=== PATIENT | male | born 1945 | race Caucasian/White ===

== ENCOUNTER 2018-03-28 11:38 | Emergency (ER) | payer MEDICARE ==
[2018-03-28] MEDS ORDERED: methylPREDNISolone Sod Succ/PF 125 MG/2 ML VIAL ONE (13:35)
== END 2018-03-28 13:55 | disposition home or self-care (01) ==
LOC: ERS 11:38
DX: T78.40XA Allergy, unspecified, initial encounter (principal); E11.9 Type 2 diabetes mellitus without complications; K21.9 Gastro-esophageal reflux disease without esophagitis; I10 Essential (primary) hypertension; M10.9 Gout, unspecified; Z79.899 Other long term (current) drug therapy; Z79.82 Long term (current) use of aspirin; Z79.4 Long term (current) use of insulin
CPT/HCPCS: 96372; J2930

== ENCOUNTER 2018-04-07 14:29 | Observation (INO) | payer MEDICARE ==
[2018-04-07 15:52] LABS: #Basophils 0.1 thou/uL (0.0-0.2); #Eosinphils 0.1 thou/uL (0.0-0.7); #Lymphocytes 1.8 thou/uL (1.20-3.40); #Monocytes 0.5 thou/uL (0.11-0.59); #Neutrophils 3.4 thou/uL (1.40-6.50); %Basophils 1.1 % (0.0-1.0); %Eosinophils 1.9 % (0.0-10.0); %Lymphocytes 30.5 % (21.0-51.0); %Neutrophils 58.6 % (42.0-75.0); Hemoglobin 12.7 g/dL (14.0-18.0); Mean Corpuscular HGB CONC 33.4 g/dL (32.0-36.0); Mean Corpuscular Volume 86.8 fL (78.0-98.0); Mean Platelet Volume 6.6 fL (7.4-10.4); Platelet Count 188 thou/uL (130-400); RBC Distribution Width 13.4 % (11.5-14.5); White Blood Cell (WBC) Count 5.9 thou/uL (4.8-10.8)
--- NOTE | 2018-04-07 15:59 | RAD ---
CHEST ONE VIEW: HISTORY: Pain. COMPARISON: 08/28/2016 FINDINGS: Normal cardiac silhouette. Pulmonary vessels and hilum are normal. No consolidation or mass. No pn eumothorax or osseous abnormalities. IMPRESSION: No acute cardiopulmonary process. POS: [facility]
[2018-04-07 16:11] LABS: ALT (SGPT) 41 U/L (8-55); AST (SGOT) 17 U/L (5-34); Albumin 3.9 g/dL (3.4-4.8); Alkaline Phosphatase 63 U/L (40-150); Anion Gap 14 mmol/L (10-20); BUN (Urea Nitrogen) 26 mg/dL (8.4-25.7); Bilirubin, Total 0.3 mg/dL (0.2-1.2); CK (CPK) 39 U/L (30-200); Calc. Creatinine Clearance 0 mL/min (70-130); Calcium 9.6 mg/dL (7.8-10.44); Carbon Dioxide 23 mmol/L (23-31); Chloride 104 mmol/L (98-107); Estimated GFR-MDRD 32; Globulin 3.1 g/dL (2.4-3.5); Glucose 233 mg/dL (83-110); Lipase 135 U/L (8-78); Potassium 5.2 mmol/L (3.5-5.1); Sodium 136 mmol/L (136-145)
[2018-04-07 16:15] LABS: CKMB 1.2 ng/mL (0-6.6); Troponin I Less than 0.010 ng/mL (< 0.028)
[2018-04-07 19:00] LABS: Troponin I Less than 0.010 ng/mL (< 0.028)
[2018-04-07] MEDS ORDERED: Dextrose 5% in Water 1,000 ML IV PRN (19:41)
[2018-04-07] MEDS ORDERED: Nitroglycerin 0.4 MG TAB (25 Tab Bottle) PO PRN (19:41)
[2018-04-07] MEDS ORDERED: Senokot 8.6 MG TAB PO PRN (19:41)
[2018-04-07] MEDS ORDERED: Ondansetron HCl/PF 4 MG/2 ML Vial IVP PRN (19:41)
[2018-04-07] MEDS ORDERED: Ondansetron ODT 4 MG TAB PO PRN (19:41)
[2018-04-07] MEDS ORDERED: Insulin Regular 300 UNITS/3 ML VIAL SC PRN ×2 (19:41)
[2018-04-07] MEDS ORDERED: Acetaminophen 325 MG TAB PO PRN (19:41)
[2018-04-07] MEDS ORDERED: Calcium Carbonate 500 MG ChewTAB PO PRN (19:41)
[2018-04-07] MEDS ORDERED: Dextrose 50% Abboject 50 ML SYRINGE SLOW IVP PRN (19:41)
[2018-04-07] MEDS ORDERED: Sodium Chloride 0.9% 1,000 ML IV SCH (19:45)
[2018-04-07] MEDS ORDERED: hydrALAZINE 20 MG/ML VIAL SLOW IVP PRN (19:46)
[2018-04-07] MEDS ORDERED: Milk Of Magnesia 30 ML UDCUP PO PRN (19:46)
[2018-04-07] MEDS ORDERED: Labetalol HCl 100 MG/20 ML VIAL SLOW IVP PRN (19:46)
[2018-04-07] MEDS ORDERED: Hydrocerin (Eucerin) Cream 120 gm Jar TOP PRN (19:46)
[2018-04-07] MEDS ORDERED: Polyethylene Glycol 3350 17 GM Packet PO PRN (19:46)
[2018-04-07] MEDS ORDERED: cloNIDine 0.1 MG TAB PO PRN (19:46)
--- NOTE | 2018-04-07 19:54 | HP ---
DATE OF ADMISSION: 04/07/2018 PRIMARY CARE PHYSICIAN: Wil Jang M.D. PRIMARY DRAWER IN STITCH BONDING MACHINE: Dr. Smith Vidales. CHIEF COMPLAINT: Chest discomfort. HISTORY OF PRESENT ILLNESS: The patient is a 73-year-old male with coronary artery disease, hyperten louann, diabetes, and GERD, who presented to the emergency room with chest discomfort that has been linsey oing for last 1-2 weeks. It is associated with shortness of breath, especially when picking somethin g heavy. The chest discomfort is pressure-like, moderate in intensity without any radiation. He den ies any associated diaphoresis, nausea, vomiting or palpitations. No syncope reported. He denies re cent immobilization, travel, fever, chills or cough. He has a history of sleep apnea and is complian t with CPAP. The patient had a cardiac catheterization in 11/2016 that showed 30% lesion in the prox imal LAD, 30% lesion in the mid LAD, 10% lesion in the first obtuse marginal, 50% stenosis in the mid RCA, and 20% stenosis in the right PDA. Left main was normal. PAST MEDICAL HISTORY: 1. Coronary artery disease as described above. 2. Hypertension. 3. Obstructive sleep apnea, on CPAP. 4. Former smoker. 5. Hyperlipidemia. 6. Diastolic dysfunction. 7. Patent foramen ovale with atrial septal aneurysm. 8. Diabetes mellitus type 2. 9. Gout. PAST SURGICAL HISTORY: 1. Cardiac catheterization. 2. Right elbow surgery. ALLERGIES: Patient denies any drug allergies. CURRENT HOME MEDICATIONS: Patient currently takes aspirin, Levemir, metoprolol succinate 150 mg jeremiah y, amlodipine 5 mg daily, allopurinol 300 mg daily, Lipitor 10 mg daily, insulin sliding scale, lisin opril. Exact dosages to be confirmed. SOCIAL HISTORY: The patient currently lives at home with his family. He is a former smoker. He is FULL CODE, makes his own decisions with the help of his family. FAMILY HISTORY: Negative for premature coronary artery disease. REVIEW OF SYSTEMS: The following complete review of systems was negative, unless otherwise mentioned in the HPI or below: Constitutional: Weight loss or gain, ability to conduct usual activities. Skin: Rash, itching. Eyes: Double vision, pain. ENT/Mouth: Nose bleeding, neck stiffness, pain, tenderness. Cardiovascular: Palpitations, dyspnea on exertion, orthopnea. Respiratory: Shortness of breath, wheezing, cough, hemoptysis, fever or night sweats. Gastrointestinal: Poor appetite, abdominal pain, heartburn, nausea, vomiting, constipation, or diarrhea. Genitourinary: Urgency, frequency, dysuria, nocturia. Musculoskeletal: Pain, swelling. Neurologic/Psychiatric: Anxiety, depression. Allergy/Immunologic: Skin rash, bleeding tendency. PHYSICAL EXAMINATION: VITAL SIGNS: Temperature 97.7, respirations 16, pulse rate of 69, blood pressure of 131/69 with O2 s aturation 100% on room air. GENERAL: A 73-year-old male in no apparent distress. Denies any chest discomfort at this time. HEENT: Head atraumatic, normocephalic. Sclerae are anicteric. Moist mucous membrane, no oral lesio n. NECK: Supple, no JVD appreciated. No carotid bruit. LUNGS: Clear to auscultation bilaterally. No wheezing, rales or rhonchi. HEART: S1, S2 present. Regular rate and rhythm. No murmur, rubs, or gallops appreciated. ABDOMEN: Soft, nontender, bowel sounds present, no rebound or guarding. EXTREMITIES: No edema or calf tenderness. NEUROLOGIC: Grossly nonfocal, moves all four extremities. PSYCHIATRY: Alert, awake, oriented x3. SKIN: Warm and dry. LYMPH NODES: No palpable lymph nodes in the neck. PERIPHERAL VASCULAR: Radial pulses palpable bilaterally. MUSCULOSKELETAL: No joint swelling or tenderness. LABORATORY FINDINGS: CBC showed WBC 5.9 with hemoglobin 12.7, hematocrit 38.2, platelet of 188. Margarita bj showed sodium 136, potassium 5.2, chloride 104, bicarbonate 23, BUN 26, creatinine 2.06. His baseline creatinine is around 1.5. Troponin x2 have been negative. BNP is 20. LFTs in normal range . Lipase was 135. EKG by my review showed sinus rhythm with left axis deviation with poor R-wave pr ogression. Chest x-ray by my review was negative for infiltrate. IMPRESSION: 1. Chest discomfort in a 73-year-old male with a history of coronary artery disease associated with shortness of breath. His symptoms are probably consistent with angina. The patient will be monitore d overnight. We will get serial troponins. We will consult Cardiology in a.m. Continue aspirin and nitroglycerin as needed. 2. Diabetes mellitus type 2. We will continue Levemir with sliding scale. The patient will be n.p. o. past midnight. 3. Acute kidney injury on chronic kidney disease stage 3. We will hold lisinopril for now. We will start him on gentle IV hydration. Repeat labs in a.m. 4. Hyperkalemia, probably secondary to renal insufficiency as well as use of FRANKY inhibitor. We will recheck labs in a.m. Lisinopril will be held. 5. Hypertension. We will resume all of his home medications once dosages are verified. 6. History of gout. We will continue allopurinol. 7. Hyperlipidemia. We will continue statins. 8. Obstructive sleep apnea. We will continue CPAP. Plan of care was discussed with the patient in detail. He stated understanding.
[2018-04-07 20:13] VITALS: BMI 37.5
[2018-04-07] MEDS ORDERED: Atorvastatin Calcium 10 MG TAB PO SCH (21:00)
[2018-04-07] MEDS ORDERED: Famotidine 20 MG TAB PO SCH (21:00)
[2018-04-07] MEDS: Insulin Glargine 15 UNITS in Pre-Filled Syringe 1 EACH SC SCH (21:17)
[2018-04-07 23:00] LABS: Troponin I Less than 0.010 ng/mL (< 0.028)
[2018-04-08 04:43] LABS: Anion Gap 14 mmol/L (10-20); BUN (Urea Nitrogen) 24 mg/dL (8.4-25.7); Calc. Creatinine Clearance 70 mL/min (70-130); Calcium 9.7 mg/dL (7.8-10.44); Carbon Dioxide 22 mmol/L (23-31); Chloride 105 mmol/L (98-107); Estimated GFR-MDRD 43; Glucose 255 mg/dL (83-110); Magnesium 1.8 mg/dL (1.6-2.6); Potassium 4.6 mmol/L (3.5-5.1); Sodium 136 mmol/L (136-145)
[2018-04-08] MEDS ORDERED: Aspirin 325 MG TAB PO SCH (08:00)
[2018-04-08 08:20] VITALS: BP 123/64; TEMP 97.9
[2018-04-08] MEDS ORDERED: Amlodipine 5 MG TAB PO SCH (09:00)
[2018-04-08] MEDS: Insulin Glargine 15 UNITS in Pre-Filled Syringe 1 EACH SC SCH (09:11)
--- NOTE | 2018-04-09 10:15 | DIS ---
DATE OF DISCHARGE: 04/08/2018 DISCHARGE DISPOSITION: Home. FOLLOWUP: 1. Follow up at Dr. Vidales's clinic today for a stress test. 2. Follow up with Dr. Jang in 1 week. DISCHARGE MEDICATIONS: Same as admission medications. No changes were made. Patient was seen and examined on the day of discharge, denies any chest discomfort. BRIEF HOSPITAL COURSE: The patient is a 73-year-old male with coronary artery disease, hypertension, diabetes and GERD who presented to the emergency room with exertional shortness of breath with chest discomfort. Please refer to the history and physical for further details. The patient was admitted to the hospital with a diagnosis of chest discomfort, rule out acute coronar y syndrome. Serial troponins remain negative. I discussed the case with Dr. Vidales who recommende d a stress test. He will follow up with Dr. Vidales's office today for a stress test. He is chest pain free. His troponins remain negative. Patient was found to have mild acute kidney injury with creatinine 2.06 that improved to 1.58 with IV hydration. Repeat base met after 1 week is recommended. Primary care physician advised to follow. FINAL DIAGNOSES: 1. Chest discomfort, acute coronary syndrome ruled out. 2. Diabetes mellitus type 2. 3. Acute kidney injury on chronic kidney disease stage 3, improved. 4. Mild hyperkalemia with potassium of 5.2. Lisinopril was held. 5. Hypertension. 6. History of gout. 7. Hyperlipidemia. 8. Obstructive sleep apnea on continuous positive airway pressure. 9. BMP after 2-3 days is recommended. Primary care physician is advised to follow. 10. Obesity with body mass index 37.6.
--- NOTE | 2018-04-16 18:23 | EKG ---
Test Reason : CP Blood Pressure : / mmHG Vent. Rate : 071 BPM Atrial Rate : 071 BPM P-R Int : 152 ms QRS Dur : 076 ms QT Int : 392 ms P-R-T Axes : 245 -20 019 degrees QTc Int : 425 ms Unusual P axis, possible ectopic atrial rhythm Minimal voltage criteria for LVH, may be normal variant Inferior infarct , age undetermined Cannot rule out Anterior infarct , age undetermined Abnormal ECG Confirmed by LORI BARNES, NEGIN Ochoa ([id number]), society editor JAY CATES ([id number]) on 04/16/2018 6:22:32 PM Referred By: Confirmed By:NEGIN SANDOVAL MD
== END 2018-04-08 10:17 | disposition home or self-care (01) ==
LOC: ERS 14:29 → ERHOLD 17:27 → 2SW 20:07
PROVIDERS: ADMIT Internal Medicine; ATTEND Internal Medicine
DX: R07.89 Other chest pain (principal); I25.10 Atherosclerotic heart disease of native coronary artery without angina pectoris; I12.9 Hypertensive chronic kidney disease with stage 1 through stage 4 chronic kidney disease, or unspecified chronic kidney disease; E11.22 Type 2 diabetes mellitus with diabetic chronic kidney disease; N18.3 Chronic kidney disease, stage 3 (moderate); N17.9 Acute kidney failure, unspecified; G47.33 Obstructive sleep apnea (adult) (pediatric); E78.5 Hyperlipidemia, unspecified; M10.9 Gout, unspecified; Q21.1 Atrial septal defect; I25.3 Aneurysm of heart; E87.5 Hyperkalemia; K21.9 Gastro-esophageal reflux disease without esophagitis; E66.9 Obesity, unspecified; Z68.37 Body mass index [BMI] 37.0-37.9, adult; Z87.891 Personal history of nicotine dependence; Z79.4 Long term (current) use of insulin; Z79.82 Long term (current) use of aspirin; Z79.899 Other long term (current) drug therapy; Z99.89 Dependence on other enabling machines and devices
CPT/HCPCS: 71045; 80048; 80053; 82550; 82553; 82962; 83690; 83735; 83880; 84484 ×2; 85025; 93005; 99285; G0378 ×2; 36415; 36416

== ENCOUNTER 2018-06-05 08:56 | Inpatient (IN) | payer MEDICARE ==
[2018-06-05 09:17] LABS: #Eosinphils 0.2 thou/uL (0.0-0.7); #Lymphocytes 1.4 thou/uL (1.20-3.40); #Monocytes 0.4 thou/uL (0.11-0.59); #Neutrophils 4.1 thou/uL (1.40-6.50); %Basophils 0.2 % (0.0-1.0); %Eosinophils 2.8 % (0.0-10.0); %Lymphocytes 22.7 % (21.0-51.0); %Monocytes 6.2 % (0.0-10.0); %Neutrophils 68.1 % (42.0-75.0); Hemoglobin 12.9 g/dL (14.0-18.0); Mean Corpuscular Hemoglobin 27.4 pg (27.0-31.0); Mean Corpuscular Volume 85.7 fL (78.0-98.0); Mean Platelet Volume 7.3 fL (7.4-10.4); Platelet Count 145 thou/uL (130-400); RBC Distribution Width 13.7 % (11.5-14.5); Red Blood Cell (RBC) Count 4.72 mill/uL (4.70-6.10); White Blood Cell (WBC) Count 6.1 thou/uL (4.8-10.8)
[2018-06-05 09:39] LABS: ALT (SGPT) 13 U/L (8-55); AST (SGOT) 9 U/L (5-34); Albumin 4.5 g/dL (3.4-4.8); Alkaline Phosphatase 71 U/L (40-150); Anion Gap 13 mmol/L (10-20); BUN (Urea Nitrogen) 27 mg/dL (8.4-25.7); Bilirubin, Total 0.3 mg/dL (0.2-1.2); CK (CPK) 70 U/L (30-200); Calc. Creatinine Clearance 0 mL/min (70-130); Calcium 9.3 mg/dL (7.8-10.44); Carbon Dioxide 25 mmol/L (23-31); Chloride 103 mmol/L (98-107); Estimated GFR-MDRD 46; Globulin 2.7 g/dL (2.4-3.5); Glucose 302 mg/dL (83-110); Potassium 5.1 mmol/L (3.5-5.1); Protein, Total 7.2 g/dL (5.8-8.1); Sodium 136 mmol/L (136-145)
[2018-06-05 09:43] LABS: CKMB 1.5 ng/mL (0-6.6); Troponin I Less than 0.010 ng/mL (< 0.028)
[2018-06-05] MEDS ORDERED: Nitroglycerin 0.4 MG TAB (25 Tab Bottle) PO PRN (09:56)
[2018-06-05] MEDS ORDERED: Dextrose 50% Abboject 50 ML SYRINGE SLOW IVP PRN (09:56)
[2018-06-05] MEDS ORDERED: Ondansetron ODT 4 MG TAB PO PRN (09:56)
[2018-06-05] MEDS ORDERED: Ondansetron PF 4 MG/2 ML Vial IVP PRN (09:56)
[2018-06-05] MEDS ORDERED: Acetaminophen 325 MG TAB PO PRN (09:56)
[2018-06-05] MEDS ORDERED: Calcium Carbonate 500 MG ChewTAB PO PRN (09:56)
[2018-06-05] MEDS ORDERED: Insulin Regular 300 UNITS/3 ML VIAL SC PRN ×2 (09:56)
[2018-06-05] MEDS ORDERED: Dextrose 5% in Water 1,000 ML IV PRN (09:56)
[2018-06-05] MEDS ORDERED: hydrALAZINE 20 MG/ML VIAL SLOW IVP PRN (10:01)
[2018-06-05] MEDS ORDERED: Labetalol HCl 100 MG/20 ML VIAL SLOW IVP PRN (10:01)
[2018-06-05] MEDS ORDERED: Heparin 5,000 UNITS/ML VIAL SC SCH (10:15)
[2018-06-05] MEDS ORDERED: Aspirin 325 MG TAB PO SCH (10:15)
[2018-06-05] MEDS ORDERED: Famotidine 20 MG TAB PO SCH (10:15)
--- NOTE | 2018-06-05 10:38 | CT ---
CT BRAIN WITHOUT CONTRAST: Date: 06/05/18 HISTORY: Stroke alert. Left eyelid droop and deficits. Blurry vision. COMPARISON: None. FINDINGS: No acute hemorrhage or infarct. No midline shift or mass effect. Ventricular size and extra-axial CSF spaces are normal. Calvarium is intact. Paranasal sinuses and mastoids are clear. IMPRESSION: 1. No acute intracranial abnormality. 2. 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 Attempted to make contact with the ER physician at the [phone] number at [phone] hours, although no one ans wered. POS: [facility]
--- NOTE | 2018-06-05 10:42 | CT ---
CT ANGIOGRAM HEAD WITH CONTRAST CT ANGIOGRAM NECK WITH CONTRAST: Date: 06/05/18 HISTORY: Stroke protocol. COMPARISON: None. TECHNIQUE: CT angiogram of the head and neck performed after the intravenous administration of contrast. 3D rend ering was provided. Exam limited as this is a delayed phase. There is more contrast within the venous system than there i s the arterial system. There were also only 60 mL of contrast administered intravenously. FINDINGS: Lung apices are clear. Thyroid is unremarkable. The vertebral arteries are codominant. Using NASCET c riteria, no hemodynamically significant stenosis of the carotid arteries. Moderate atherosclerotic pl aque both carotid bulbs. [place] of [place] patent. IMPRESSION: 1. Patent [place] of [place]. No thrombosis, aneurysm formation, or significant stenosis given the marino itations as described. 2. Using NASCET criteria, no hemodynamically significant stenosis internal carotid arteries. Attempted to contact the ordering provider at [phone] hours, but nobody answered. POS: [facility]
[2018-06-05 13:21] VITALS: BMI 38.2
[2018-06-05] MEDS: Sodium Chloride 0.9% 1,000 ML IV SCH (13:52)
--- NOTE | 2018-06-05 14:52 | CON ---
DATE OF CONSULTATION: 06/05/2018. CONSULTING PHYSICIAN: Hospitalist service. IMPRESSION: 1. Probable posterior brainstem infarct resulting in double vision and mild left lower extremity wea kness. 2. Diabetes. 3. Hypertension. 4. Aspirin failure. PLAN: 1. Add Plavix. 2. Continue aspirin and statin. 3. MRI of the brain. 4. Echocardiogram. HISTORY OF PRESENT ILLNESS: Mr. Calloway is a 73-year-old man with above noted medical problems. He mazariegos s been followed by Dr. Vidales and reportedly he has had some previous evidence of silent ischemia. He awoke last evening and noted that his vision was distorted. As he started to get up and move kerry und, he noticed that the left leg was weak. There was some very mild headache associated with it. T here was no nausea or vomiting, trouble swallowing, trouble speaking or incoordination of the hands a s far as he could tell. He came in and had a CTA and CT of the brain done last evening. There was n o extracranial or intracranial vessel stenosis noted. No evidence of hemorrhage is present. His vit al signs have been in normal range and he is afebrile. He has no past history of similar complaints. PAST MEDICAL HISTORY: As listed above. ALLERGIES: None. SOCIAL HISTORY: No tobacco or alcohol abuse. FAMILY HISTORY: Noncontributory. REVIEW OF SYSTEMS: No complaints of chest pain, shortness of breath, loss of hearing, vertigo, later alized numbness. PHYSICAL EXAMINATION: GENERAL: He is a overweight elderly man, in no acute distress. VITAL SIGNS: Blood pressure 157/72, pulse 64, respirations 20, temperature 97.9. HEENT: Pupils were equal. Conjunctivae was clear. Oropharynx is clear. NECK: Supple, no lymphadenopathy noted. EXTREMITIES: No cyanosis. NEUROLOGIC: He was alert and cooperative. His speech is fluent and clear. His cranial nerve exam w as notable that on the right, his eye had limited both lateral and medial deviation and on the left, there was restricted up and down gaze. He tended to drift into an exotropic position in mid gaze. T here was slight ptosis present on the left. The remainder of the cranial nerve exam was intact. Mot or exam showed good strength bilaterally in the upper extremities. There was mild subjective weaknes s in the left leg. Plantar responses were downgoing. Sensation was intact to light touch. Gait was not tested. LABORATORY STUDIES: BUN 27, creatinine 1.5, glucose 302, unremarkable CBC. SUMMARY: A 73-year-old man with acute double vision and left leg weakness. His exam suggested inter nuclear ophthalmoplegia. His initial workup has been unremarkable. I suspect that he has had a smal l vessel stroke in the brainstem. We could proceed with further diagnostics and advance his antiplat elet therapy with Plavix.
[2018-06-05] MEDS ORDERED: Clopidogrel Bisulfate 75 MG TAB PO SCH (16:45)
[2018-06-05] MEDS ORDERED: ISOVUE-370 76%-LOCM 1 ML ONE (16:53)
--- NOTE | 2018-06-05 16:54 | HP ---
DATE OF ADMISSION: 06/05/2018 PRIMARY CARE PHYSICIAN: Dr. Jang. PRIMARY VENDING ENTERPRISES SUPERVISOR: Dr. Smith Vidales. CHIEF COMPLAINT: Stroke-like symptoms. HISTORY OF PRESENT ILLNESS: Patient is a 73-year-old male with coronary artery disease, hypertension , obstructive sleep apnea on CPAP, patent foramen ovale with atrial septal aneurysm and diabetes juanita itus type 2, presented to the emergency room with the above symptoms. The patient felt normal when he went to sleep last night. Around 7:30 a.m. when he woke up, he notic ed that his left side was weak. He also had difficulty with vision. There was some burning sensatio n behind his left eye along with numbness to the tip of his tongue. His left lower extremity was wea k as well. He had difficulty walking and had double vision. For this reason, he presented to the em ergency room. He denies any headache, chest pain, palpitations, seizure or facial droop. No slurrin g of speech reported. In the emergency room, initial vital signs showed temperature 97.7, respirations 16, pulse rate of 67 , blood pressure of 172/95 with O2 saturation 97% on room air. He received aspirin in the emergency room. PAST MEDICAL HISTORY: 1. Obstructive sleep apnea on CPAP. 2. Diabetes mellitus type 2. 3. Coronary artery disease. 4. Chronic kidney disease stage 3. 5. Hypertension. 6. Gout. 7. Hyperlipidemia. 8. Obesity with BMI 38.2. 9. History of patent foramen ovale with atrial septal aneurysm. PAST SURGICAL HISTORY: 1. Cardiac catheterization. 2. Right elbow surgery. ALLERGIES: No known drug allergies. CURRENT HOME MEDICATIONS: Allopurinol 300 mg daily, amlodipine 5 mg daily, aspirin 81 mg daily, Lipi tor 10 mg at bedtime, Benadryl as needed, Flovent Diskus 50 mcg daily, hydralazine 50 mg 3 times jeremiah y, NovoLog 25 units 3 times daily, sliding scale, Levemir 25 units b.i.d., lisinopril 20 mg daily, me tformin 1000 mg b.i.d., Toprol-XL 150 mg daily, ranitidine 300 mg at bedtime. SOCIAL HISTORY: Patient currently lives at home with his family. He is a former smoker. Denies any current use of smoking, alcohol or drug use. He makes his own decision with the help of his family. He is FULL CODE. FAMILY HISTORY: Negative for premature coronary artery disease or CVA. REVIEW OF SYSTEMS: The following complete review of systems was negative, unless otherwise mentioned in the HPI or below: Constitutional: Weight loss or gain, ability to conduct usual activities. Skin: Rash, itching. Eyes: Double vision, pain. ENT/Mouth: Nose bleeding, neck stiffness, pain, tenderness. Cardiovascular: Palpitations, dyspnea on exertion, orthopnea. Respiratory: Shortness of breath, wheezing, cough, hemoptysis, fever or night sweats. Gastrointestinal: Poor appetite, abdominal pain, heartburn, nausea, vomiting, constipation, or diarr hea. Genitourinary: Urgency, frequency, dysuria, nocturia. Musculoskeletal: Pain, swelling. Neurologic/Psychiatric: Anxiety, depression. Allergy/Immunologic: Skin rash, bleeding tendency. PHYSICAL EXAMINATION: VITAL SIGNS: As discussed above. GENERAL: A 73-year-old male in no apparent distress. HEENT: Head is atraumatic, normocephalic. Sclerae are anicteric. Moist mucous membrane, no oral le louann. Pupils were equally reacting to light. There is left gaze preference in the left eye. The pa tient has covered his left eye at this time. NECK: Supple, no JVD, no carotid bruit. LUNGS: Clear to auscultation bilaterally, no wheezing, rales or rhonchi. HEART: S1, S2 present. Regular rate and rhythm. No murmur, rubs, or gallops appreciated. ABDOMEN: Soft, nontender, bowel sounds present. EXTREMITIES: No edema or calf tenderness. NEUROLOGIC: Cranial nerves II-XII were normal on examination except for inability of the right eye t o pass the midline when looking towards left. Power was 5/5 in right upper and right lower extremity . It was 4/5 in left lower extremity. Left upper extremity appears to have normal power. Sensation to touch was normal bilaterally. SKIN: Warm and dry. LYMPH NODES: No palpable lymph nodes in the neck. PERIPHERAL VASCULAR: Radial pulses palpable bilaterally. MUSCULOSKELETAL: No joint swelling or tenderness. IMAGING DATA AND LABORATORY DATA: 1. EKG by my review showed sinus rhythm with left axis deviation, no significant ST-T wave changes n oted. Creatinine 1.5 with BUN 27, sodium 136, potassium 5.1. 2. WBC was 6.1 with hemoglobin 12.9. 3. CT angiogram of the head and neck by my review was negative for hemodynamically significant steno sis in the [place] of [place] as well as the carotid arteries. CT brain noncontrast was negative. IMPRESSION: 1. Acute brainstem cerebrovascular accident with double vision and mild left lower extremity weaknes s. 2. Diabetes mellitus type 2. 3. Hypertension. 4. Chronic kidney disease stage 3. 5. Mild coronary artery disease. 6. Gout. 7. Hyperlipidemia. 8. Obstructive sleep apnea on CPAP. PLAN: The patient will be monitored in the stroke unit. Plavix will be added to his regimen per oSnny zarate recommendation. We will start him on insulin sliding scale. Resume Levemir. We will continu e statins. We will reduce the metoprolol dose for permissive hypertension. We will continue selecte d other home medications. We will hold FRANKY inhibitor. Echocardiogram will be obtained. We will obt ain MRI of the brain. Fasting lipid profile in a.m. Plan of care was discussed with the patient in detail. He stated understanding.
[2018-06-05] MEDS: Insulin Regular 300 UNITS/3 ML VIAL SC PRN (17:14)
[2018-06-05] MEDS ORDERED: Non-Formulary Item 1 EACH (Insulin Detemir 100 Units/Ml [Levemir] 25 UNIT) SQ SCH (21:00)
[2018-06-05] MEDS ORDERED: Atorvastatin Calcium 40 MG TAB PO SCH (21:00)
[2018-06-05] MEDS: Atorvastatin Calcium 10 MG TAB PO SCH (22:02)
[2018-06-05] MEDS: Senokot S 8.6-50 MG TAB PO SCH (22:02)
[2018-06-05] MEDS: Insulin Glargine 25 UNITS in Pre-Filled Syringe 1 EACH SC SCH (22:02)
[2018-06-05] MEDS: Heparin 5,000 UNITS/ML VIAL SC SCH (22:02)
[2018-06-05] MEDS ORDERED: diphenhydrAMINE 50 MG CAP PO SCH (23:45)
[2018-06-06] MEDS: Sodium Chloride 0.9% 1,000 ML IV SCH ×2 (04:12→14:35)
[2018-06-06 05:08] LABS: Anion Gap 14 mmol/L (10-20); BUN (Urea Nitrogen) 19 mg/dL (8.4-25.7); Calc. Creatinine Clearance 91 mL/min (70-130); Calcium 8.8 mg/dL (7.8-10.44); Carbon Dioxide 20 mmol/L (23-31); Cardiac Risk 5.3 (Less than 4.5); Chloride 107 mmol/L (98-107); Cholesterol 123 mg/dl (< 200 Desired); Estimated GFR-MDRD 57; Glucose 249 mg/dL (83-110); HDL Cholesterol 23 mg/dL (>60 Neg Risk); LDL Cholesterol, Calculated 21 mg/dL; Potassium 4.3 mmol/L (3.5-5.1); Sodium 137 mmol/L (136-145); Triglycerides 393 mg/dL (Less than 150)
[2018-06-06] MEDS: Insulin Regular 300 UNITS/3 ML VIAL SC PRN ×2 (06:33→11:36)
[2018-06-06] MEDS: Heparin 5,000 UNITS/ML VIAL SC SCH ×2 (08:38→21:12)
[2018-06-06] MEDS: Insulin Glargine 25 UNITS in Pre-Filled Syringe 1 EACH SC SCH ×2 (08:39→21:12)
[2018-06-06] MEDS: Famotidine 20 MG TAB PO SCH (08:40)
[2018-06-06] MEDS: Aspirin 81 mg Enteric Coated Tablet PO SCH (08:40)
[2018-06-06] MEDS: Allopurinol 300 MG TAB PO SCH (08:40)
[2018-06-06] MEDS: Clopidogrel Bisulfate 75 MG TAB PO SCH (08:40)
[2018-06-06] MEDS: Senokot S 8.6-50 MG TAB PO SCH ×2 (08:40→21:12)
[2018-06-06] MEDS: Multivit, Therapeutic 1 TAB PO SCH (08:43)
[2018-06-06] MEDS ORDERED: Aspirin 325 MG TAB PO SCH (09:00)
[2018-06-06] MEDS ORDERED: Non-Formulary Item 1 EACH (Ranitidine Hcl [Ranitidine Hcl] 300 MG) PO SCH (09:00)
--- NOTE | 2018-06-06 10:04 | MRI ---
MRI BRAIN WITHOUT CONTRAST: Date: 06/06/18 HISTORY: Acute CVA. COMPARISON: CT brain prior day. FINDINGS: On the diffusion-weighted imaging sequence, there is a subtle focal area of increased signal within t he posterior midline lamont, although there is no significant decreased signal on the ADC map. This may represent a late subacute infarction. No large volume infarct. No midline shift or mass effect. Moderate microvascular ischemic changes. On the susceptibility weighted imaging sequence, there are n o abnormal areas of hemorrhage. The globes are intact. Cerebellar tonsils terminate at the level of the foramen magnum. Corpus callos um is intact. Marrow signal of the clivus is normal. The [place] of [place] flow-voids are maintained. 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 POS: [facility]
[2018-06-06] MEDS: diphenhydrAMINE 25 MG CAP PO PRN (18:24)
--- NOTE | 2018-06-06 18:37 | PDOC.PN ---
- Subjective Encounter Start Date: 06/06/18 Encounter Start Time: 09:00 Patient seen and examined for Acute CVA. No new focal deficits. No overnight events - Objective Resuscitation Status: Resuscitation Status FULL:Full Resuscitation MAR Reviewed: Yes Vital Signs & Weight: Vital Signs (12 hours) Temp Pulse Pulse Resp BP BP Pulse Ox 06/06/18 18:32 158/73 H 06/06/18 16:00 98.0 F 64 16 185/85 H 97 06/06/18 11:00 97.9 F 61 16 146/80 H 95 06/06/18 10:32 65 163/85 H 06/06/18 08:38 94 L 06/06/18 07:49 97.8 F 60 16 132/68 94 L Weight Weight 266 lb 6 oz I&O: 06/05/18 06/06/18 06/07/18 06:59 06:59 06:59 Intake Total 300 2470 Balance 300 2470 Result Diagrams: 06/05/18 09:03 06/06/18 04:11 Additional Labs: Accuchecks 06/06/18 06/06/18 06/06/18 17:30 10:44 06:12 POC Glucose 142 H 238 H 244 H 06/05/18 21:56 POC Glucose 182 H EKG Reviewed by me: Yes (Tele SR) Phys Exam - Physical Examination Constitutional: NAD Neck: no JVD Respiratory: no wheezing, no rhonchi Cardiovascular: RRR, no rub Gastrointestinal: soft, non-tender, positive bowel sounds Musculoskeletal: no edema Neurological: moves all 4 limbs No new focal deficits Psychiatric: A&O x 3 Dx/Plan - Plan 1. Acute brainstem cerebrovascular accident with double vision and mild left lower extremity weakness. 2. Diabetes mellitus type 2. 3. Hypertension. 4. Chronic kidney disease stage 3. 5. Mild coronary artery disease. 6. Gout. 7. Hyperlipidemia. 8. Obstructive sleep apnea on CPAP. PLAN: Await MRI and Echo Cont ASA/Plavix Cont other meds as below [facility] Eval Arrange Rolling Walker due to gait imbalance Review of Systems - Review of Systems Cardiovascular: negative: chest pain, palpitations, orthopnea, paroxysmal nocturnal dyspnea, edema, light headedness, other Gastrointestinal: negative: Nausea, Vomiting, Abdominal Pain, Diarrhea, Constipation, Melena, Hematochezia, Other - Medications/Allergies Allergies/Adverse Reactions: Allergies Allergy/AdvReac Type Severity Reaction Status Date / Time No Known Allergies Allergy Verified 04/07/18 20:18 Medications: Current Medications Acetaminophen (Tylenol) 650 mg PO Q4H PRN PRN Reason: Headache/Fever/Mild Pain (1-3) Allopurinol (Zyloprim) 300 mg PO DAILY [facility] Last Admin: 06/06/18 08:40 Dose: 300 mg Aspirin (Ecotrin) 81 mg PO DAILY [facility] Last Admin: 06/06/18 08:40 Dose: 81 mg Atorvastatin Calcium (Lipitor) 10 mg PO HS [facility] Last Admin: 06/05/18 22:02 Dose: 10 mg Calcium Carbonate (Tums) 1,000 mg PO Q4H PRN PRN Reason: Heartburn or Indigestion Clopidogrel Bisulfate (Plavix) 75 mg PO DAILY [facility] Last Admin: 06/06/18 08:40 Dose: 75 mg Dextrose/Water (Dextrose 50%) 25 gm SLOW IVP PRN PRN PRN Reason: Hypoglycemia Diphenhydramine HCl (Benadryl) 25 mg PO Q6H PRN PRN Reason: Itching & Insomnia Last Admin: 06/06/18 18:24 Dose: 25 mg Famotidine (Pepcid) 20 mg PO DAILY [facility] Last Admin: 06/06/18 08:40 Dose: 20 mg Glucagon (Glucagon) 1 mg IM PRN PRN PRN Reason: Hypoglycemia Heparin Sodium (Porcine) (Heparin) 5,000 units SC BID [facility] Last Admin: 06/06/18 08:38 Dose: 5,000 units Hydralazine HCl (Apresoline) 10 mg SLOW IVP Q4H PRN PRN Reason: BP > 220/110 Sodium Chloride (Normal Saline 0.9%) 1,000 mls @ 75 mls/hr IV .[id number] [facility] Last Admin: 06/06/18 14:35 Dose: 1,000 mls Dextrose/Water (D5w) 1,000 mls @ 0 mls/hr IV .Q0M PRN PRN Reason: Hypoglycemia Insulin Glargine 25 units/ (Miscellaneous Medication) 0.25 mls @ 0 mls/hr SC BID [facility] Last Admin: 06/06/18 08:39 Dose: 0.25 mls Insulin Human Regular (Humulin R) 0 units SC .BEDTIME SLIDING SC PRN PRN Reason: Bedtime Correctional Scale Insulin Human Regular (Humulin R) 0 units SC .AGGRESSIVE SLIDING PRN PRN Reason: Aggressive Sliding Scale Last Admin: 06/06/18 11:36 Dose: 6 unit Labetalol HCl (Normodyne) 20 mg SLOW IVP Q1H PRN PRN Reason: BP > 220/110 Metoprolol Succinate (Toprol Xl) 50 mg PO BID [facility] Last Admin: 06/06/18 08:40 Dose: 50 mg Multivitamins (Theragran) 1 tab PO DAILY [facility] Last Admin: 06/06/18 08:43 Dose: 1 tab Nitroglycerin (Nitrostat) 0.4 mg PO Q5MIN PRN PRN Reason: Chest Pain Ondansetron HCl (Zofran Odt) 4 mg PO Q6H PRN PRN Reason: Nausea/Vomiting Ondansetron HCl (Zofran) 4 mg IVP Q6H PRN PRN Reason: Nausea/Vomiting Senna/Docusate Sodium (Senokot S) 1 tab PO BID [facility] Last Admin: 06/06/18 08:40 Dose: 1 tab Sodium Chloride (Flush - Normal Saline) 10 ml IVF PRN PRN PRN Reason: Saline Flush
[2018-06-06] MEDS: Atorvastatin Calcium 10 MG TAB PO SCH (21:12)
[2018-06-07] MEDS: diphenhydrAMINE 25 MG CAP PO PRN (03:08)
[2018-06-07] MEDS: Sodium Chloride 0.9% 1,000 ML IV SCH (03:12)
[2018-06-07] MEDS: Allopurinol 300 MG TAB PO SCH (08:33)
[2018-06-07] MEDS: Clopidogrel Bisulfate 75 MG TAB PO SCH (08:33)
[2018-06-07] MEDS: Famotidine 20 MG TAB PO SCH (08:33)
[2018-06-07] MEDS: Insulin Glargine 25 UNITS in Pre-Filled Syringe 1 EACH SC SCH (08:33)
[2018-06-07] MEDS: Multivit, Therapeutic 1 TAB PO SCH (08:34)
[2018-06-07] MEDS: Aspirin 81 mg Enteric Coated Tablet PO SCH (08:50)
[2018-06-07] MEDS: Senokot S 8.6-50 MG TAB PO SCH (08:50)
[2018-06-07 11:54] VITALS: TEMP 98.1
[2018-06-07 11:55] VITALS: BP 144/77
[2018-06-07] MEDS: Insulin Regular 300 UNITS/3 ML VIAL SC PRN (12:07)
--- NOTE | 2018-06-07 22:36 | DIS ---
DATE OF DISCHARGE: 06/07/2018 DISCHARGE DISPOSITION: Home. FOLLOWUP: 1. Follow up with primary care physician, Dr. Jang in 1 week. 2. Follow up with Neurology, Dr. De Leon, in 2 weeks. 3. Home health care through guardian was arranged. ALLERGIES: No known drug allergies. The patient was seen and examined on the day of discharge. Denies any new complaints. No chest pain , shortness of breath, palpitations. DISCHARGE MEDICATIONS: Plavix 75 mg daily, Vascepa 2 grams b.i.d., multivitamin 1 tablet daily. The patient will continue all other home medications including 81 mg aspirin. INPATIENT CONSULTANTS: Neurology, Dr. De Leon. BRIEF HOSPITAL COURSE: The patient is a 73-year-old male with diabetes mellitus, type 2; hypertensio n; coronary artery disease; and obstructive sleep apnea; presented to the hospital with stroke like s ymptoms. Please refer to the history and physical dated 06/05/2018 for further details. The patient was admitted to the hospital with a diagnosis of acute CVA. He was seen by Neurology, Dr Adam De Leon. MRI of the brain was positive for right pontine infarction. The patient has been started on Plavix along with low dose aspirin per Neurology recommendation. He appears stable for discharge to home with home health care. FINAL DIAGNOSES: 1. Acute brainstem cerebrovascular accident with double vision and mild left lower extremity weaknes s. 2. Diabetes mellitus, type 2. 3. Hypertension. 4. Chronic kidney disease, stage 3. 5. Mild coronary artery disease. 6. Gout. 7. Dyslipidemia. 8. Obstructive sleep apnea on CPAP. 9. Obesity with a body mass index of 38.2. Plan of care was discussed with the patient in detail. He stated understanding.
== END 2018-06-07 13:05 | disposition home health service (06) | DRG 66 ==
LOC: ERS 08:56 → 2SE 12:17
PROVIDERS: ADMIT Internal Medicine; ATTEND Internal Medicine
DX: I63.9 Cerebral infarction, unspecified (principal); I25.10 Atherosclerotic heart disease of native coronary artery without angina pectoris; G47.33 Obstructive sleep apnea (adult) (pediatric); E11.22 Type 2 diabetes mellitus with diabetic chronic kidney disease; I12.9 Hypertensive chronic kidney disease with stage 1 through stage 4 chronic kidney disease, or unspecified chronic kidney disease; N18.3 Chronic kidney disease, stage 3 (moderate); H53.2 Diplopia; G83.14 Monoplegia of lower limb affecting left nondominant side; M10.9 Gout, unspecified; E78.5 Hyperlipidemia, unspecified; E66.9 Obesity, unspecified; Z68.38 Body mass index [BMI] 38.0-38.9, adult; Z79.82 Long term (current) use of aspirin; Z79.4 Long term (current) use of insulin; Z87.891 Personal history of nicotine dependence
CPT/HCPCS: 36415; 36416; 70450; 70496; 70498; 70551; 80048; 80053; 80061; 82553; 83735; 84484; 85025; 93005; 93306; G8978-GP-CJ; G8979-GP-CI; G8987-GO-CJ; G8988-GO-CI; G8996-GN-CH; G8997-GN-CH; J1644; J1815

== ENCOUNTER 2020-08-11 16:24 | Inpatient (IN) | payer MEDICARE ==
--- NOTE | 2020-08-11 17:03 | RAD ---
XR Chest 1 View Portable HISTORY: Chest pain, shortness of COMPARISON: 04/07/2018 FINDINGS: The heart size is normal. The lungs are well expanded without focal areas of consolidation, pneumothorax or pleural effusions. IMPRESSION: No radiographic evidence of acute cardiopulmonary process.
[2020-08-11 17:24] LABS: #Eosinphils 0.1 thou/uL (0.0-0.7); #Lymphocytes 1.5 thou/uL (1.20-3.40); #Monocytes 0.6 thou/uL (0.11-0.59); #Neutrophils 4.3 thou/uL (1.40-6.50); %Basophils 0.3 % (0.0-1.0); %Eosinophils 1.8 % (0.0-10.0); %Lymphocytes 22.8 % (21.0-51.0); %Monocytes 9.1 % (0.0-10.0); Hemoglobin 13.8 g/dL (14.0-18.0); Mean Corpuscular Volume 85.4 fL (78.0-98.0); Mean Platelet Volume 6.4 fL (7.4-10.4); Platelet Count 179 thou/uL (130-400); RBC Distribution Width 12.9 % (11.5-14.5); Red Blood Cell (RBC) Count 4.77 mill/uL (4.70-6.10); White Blood Cell (WBC) Count 6.6 thou/uL (4.8-10.8)
[2020-08-11 17:48] LABS: ALT (SGPT) 21 U/L (8-55); AST (SGOT) 15 U/L (5-34); Albumin 4.5 g/dL (3.4-4.8); Alkaline Phosphatase 61 U/L (40-110); Anion Gap 13 mmol/L (10-20); BUN (Urea Nitrogen) 25 mg/dL (8.4-25.7); Bilirubin, Total 0.3 mg/dL (0.2-1.2); Calc. Creatinine Clearance 0 mL/min (70-130); Calcium 9.9 mg/dL (7.8-10.44); Carbon Dioxide 31 mmol/L (23-31); Chloride 100 mmol/L (98-107); Globulin 2.8 g/dL (2.4-3.5); Glucose 142 mg/dL (83-110); Lipase 42 U/L (8-78); Potassium 4.8 mmol/L (3.5-5.1); Protein, Total 7.3 g/dL (5.8-8.1); Sodium 139 mmol/L (136-145)
[2020-08-11] MEDS ORDERED: Acetaminophen 650 MG Suppository PR PRN (20:40)
[2020-08-11] MEDS ORDERED: Acetaminophen 325 MG TAB PO PRN (20:40)
[2020-08-11 20:41] LABS: Troponin I 0.012 ng/mL (< 0.028)
[2020-08-11] MEDS ORDERED: Nitroglycerin 0.4 MG TAB (25 Tab Bottle) SL PRN (20:42)
[2020-08-11] MEDS ORDERED: Aspirin 325 MG TAB PO SCH (20:45)
--- NOTE | 2020-08-11 22:25 | PDOC.HHP ---
Hospitalist HPI - History of Present Illness History of Present Illness: ADMISSION DATE: 08/11/2020 TIME OF ASSESSMENT: 1899 PRIMARY CARE PHYSICIAN: Dr. Jang CHIEF COMPLAINT: Chest pain and shortness of breath HPI: This is a 75-year-old gentleman who presents to the emergency department with complaints of progressively worsening chest pain that is usually brought on with exertion. He states he was recommended catheterization by Dr. Vidales in June however this was postponed due to the pandemic. He states he has had shortness of breath with exertion for several months and it has slightly worsened since June. 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 That is when the chest discomfort occurs as well which she states is in the left side of his chest and nonradiating. He states that that time the plan was to admit him to the hospital for hydration the night before the procedure given his chronic kidney disease. Since then he has had some medications discontinued that were deemed to be contributing to his underlying kidney dysfunction. The patient states that he is completely pain-free at the moment and usually tends to be as long as he is not exerting himself. ED COURSE: EKG done in the emergency department showed a heart rate of 76, normal sinus rhythm with Q waves in the inferior leads and V1. No ST changes. Labs showed an initial troponin that was negative. White blood count 6.6, hemoglobin 13.8, hematocrit 40.8, platelets 179, neutrophils 66%. Sodium 139, potassium 4.8, BUN 25, creatinine 1.63, GFR 41, glucose 142, LFTs normal and lipase 42. Chest x-ray was done showing no acute cardiopulmonary process. He received 500 mL of normal saline. He took aspirin at home prior to arriving. PAST MEDICAL HISTORY: 1. GERD 2. Hypertension 3. Diabetes mellitus 4. Gout 5. Obesity 6. CAD PAST SURGICAL HISTORY: 1. Right elbow surgery SOCIAL HISTORY: The patient reports drinking socially, denies any tobacco use or drug use. Lives at home with his family. FAMILY HISTORY: Noncontributory ALLERGIES: No known drug allergies CURRENT MEDICATIONS: 1. Allopurinol 300 mg p.o. daily 2. Amlodipine 5 mg p.o. daily 3. Atorvastatin 10 mg p.o. daily 4. Metoprolol tartrate 150 mg p.o. daily 5. Pepcid 20 mg p.o. daily 6. Isosorbide mononitrate ER 30 mg p.o. daily 7. Hydrochlorothiazide 100 mg p.o. 3 times daily - Exam General Appearance: NAD, awake alert General - other findings: VS: Temp 98.1, HR 73, BP 134/76, RR 18, O2 sat 95% on room air Eye: PERRL, anicteric sclera ENT: normocephalic atraumatic, moist mucosa Neck: supple, no lymphadenopathy Heart: RRR, normal peripheral pulses Respiratory: CTAB, no wheezes, normal chest expansion, no tachypnea Gastrointestinal: soft, non-tender, non-distended, normal bowel sounds, no guarding, no rigidity Extremities: 1+ LE edema Skin: normal turgor, no lesions, no rashes Neurological: cranial nerve grossly intact, normal sensation to touch Musculoskeletal: normal tone, normal strength, no muscle wasting Psychiatric: normal affect, normal behavior, A&O x 3 Hospitalist Results - Labs Result Diagrams: 08/11/20 17:10 08/11/20 17:10 Lab results: WBC 6.6 thou/uL (4.8-10.8) 08/11/20 17:10 Hgb 13.8 g/dL (14.0-18.0) L 08/11/20 17:10 Hct 40.8 % (42.0-52.0) L 08/11/20 17:10 MCV 85.4 fL (78.0-98.0) 08/11/20 17:10 Plt Count 179 thou/uL (130-400) 08/11/20 17:10 Neutrophils % 66.0 % (42.0-75.0) 08/11/20 17:10 Sodium 139 mmol/L (136-145) 08/11/20 17:10 Potassium 4.8 mmol/L (3.5-5.1) 08/11/20 17:10 Chloride 100 mmol/L (98-107) 08/11/20 17:10 Carbon Dioxide 31 mmol/L (23-31) 08/11/20 17:10 BUN 25 mg/dL (8.4-25.7) 08/11/20 17:10 Creatinine 1.63 mg/dL (0.7-1.3) H 08/11/20 17:10 Glucose 142 mg/dL (83-110) H 08/11/20 17:10 Calcium 9.9 mg/dL (7.8-10.44) 08/11/20 17:10 Total Bilirubin 0.3 mg/dL (0.2-1.2) 08/11/20 17:10 AST 15 U/L (5-34) 08/11/20 17:10 ALT 21 U/L (8-55) 08/11/20 17:10 Alkaline Phosphatase 61 U/L (40-110) 08/11/20 17:10 Troponin I 0.012 ng/mL (< 0.028) 08/11/20 20:10 Serum Total Protein 7.3 g/dL (5.8-8.1) 08/11/20 17:10 Albumin 4.5 g/dL (3.4-4.8) 08/11/20 17:10 Lipase 42 U/L (8-78) 08/11/20 17:10 Hospitalist H&P A/P - Problem (1) Chest pain Code(s): R07.9 - CHEST PAIN, UNSPECIFIED Status: Acute (2) CAD (coronary artery disease) Code(s): I25.10 - ATHSCL HEART DISEASE OF [place] CORONARY ARTERY W/O ANG PCTRS Status: Chronic (3) Hypertension Code(s): I10 - ESSENTIAL (PRIMARY) HYPERTENSION Status: Chronic (4) Diabetes mellitus Code(s): E11.9 - TYPE 2 DIABETES MELLITUS WITHOUT COMPLICATIONS Status: Chronic (5) Gout Code(s): M10.9 - GOUT, UNSPECIFIED Status: Chronic (6) GERD (gastroesophageal reflux disease) Code(s): K21.9 - GASTRO-ESOPHAGEAL REFLUX DISEASE WITHOUT ESOPHAGITIS Status: Chronic - Plan Plan: Chest pain Continue cardiac monitoring and trend troponins Consult placed to Dr. Vidales NPO after midnight Check Mg+, TSH and fasting AM lipid panel Continue statin and aspirin Diabetes mellitus Monitor glucose Initiate sliding scale Hypertension Monitor BP Resume home medications as appropriate once verified NAYELY/CKD Monitor renal function Avoid nephrotoxic meds Gentle hydration GI Prophylaxis with Famotidine DVT Prophylaxis with mechanical SCDs. CODE STATUS FULL Case discussed with attending who agrees with plan as above.
[2020-08-12 01:31] LABS: SARS-CoV-2 PCR by NAA Not Detected (NotDetected)
[2020-08-12 05:59] LABS: #Eosinphils 0.1 thou/uL (0.0-0.7); #Lymphocytes 1.6 thou/uL (1.20-3.40); #Monocytes 0.6 thou/uL (0.11-0.59); #Neutrophils 3.8 thou/uL (1.40-6.50); %Basophils 0.3 % (0.0-1.0); %Eosinophils 2.2 % (0.0-10.0); %Lymphocytes 25.5 % (21.0-51.0); %Monocytes 10.4 % (0.0-10.0); %Neutrophils 61.5 % (42.0-75.0); Hemoglobin 13.3 g/dL (14.0-18.0); Mean Corpuscular HGB CONC 32.3 g/dL (32.0-36.0); Mean Corpuscular Hemoglobin 27.5 pg (27.0-31.0); Mean Platelet Volume 6.6 fL (7.4-10.4); Platelet Count 156 thou/uL (130-400); RBC Distribution Width 12.8 % (11.5-14.5); Red Blood Cell (RBC) Count 4.84 mill/uL (4.70-6.10); White Blood Cell (WBC) Count 6.1 thou/uL (4.8-10.8)
[2020-08-12 06:18] LABS: Anion Gap 14 mmol/L (10-20); BUN (Urea Nitrogen) 28 mg/dL (8.4-25.7); Calc. Creatinine Clearance 0 mL/min (70-130); Calcium 9.2 mg/dL (7.8-10.44); Carbon Dioxide 26 mmol/L (23-31); Cardiac Risk 5.1 (Less than 4.5); Chloride 103 mmol/L (98-107); Cholesterol 128 mg/dl (< 200 Desired); Glucose 259 mg/dL (83-110); HDL Cholesterol 25 mg/dL (>60 Neg Risk); LDL Cholesterol, Calculated 31 mg/dL; Potassium 4.4 mmol/L (3.5-5.1); Sodium 139 mmol/L (136-145); Triglycerides 362 mg/dL (Less than 150)
[2020-08-12] MEDS: Sodium Chloride 0.9% 1,000 ML IV SCH (09:15)
[2020-08-12] MEDS ORDERED: Dextrose 5% in Water 1,000 ML IV PRN (09:29)
[2020-08-12] MEDS ORDERED: Dextrose 50% Abboject 50 ML SYRINGE SLOW IVP PRN (09:29)
[2020-08-12] MEDS: Allopurinol 300 MG TAB PO SCH (09:52)
[2020-08-12] MEDS ORDERED: HumaLOG 300 UNITS/3 ML VIAL ONE (10:26)
[2020-08-12] MEDS: HumaLOG 300 UNITS/3 ML VIAL SC PRN (10:28)
--- NOTE | 2020-08-12 11:26 | PDOC.HOSPP ---
- Subjective Encounter Date: 08/12/20 Encounter Time: 08:30 non-verbal Subjective: F/u: chest pain Mr. Major Calloway 75 YOWM with PMH of chest pain, HTN, DM2 and CKD presented to ED yesterday 4p with cc of chest pain with shortness of breath. Onset has been gradual over the past few months. Exertion exacerbates the chest pain and it is relieved by rest and tylenol or aspirin. He says, "it feels like someone is pushing a hand down on my chest" and he points to a location central and sternal. 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 He also helps his who has AD picking her up to transfer, to dress, activities of daily living and picking her up gives him shortness of breath. Denies radiation, Severity is 4-5 out of 10 at its worst. He used to take walks in the morning, but now walking gives him shortness of breath. Mr. Calloway also includes leg cramps and leg weakness as possible associated symptoms, but he does not know. Patient states he is a patient of Dr. Vidales and had US Echo and ECG performed a month ago. At that time, was advised to get a cath, but could not because the surgery was considered elective and had to defer due to C19. Patient states Dr. Vidales told him to come into the ED if the symptoms became much worse, which is why he came in yesterday afternoon. The patient denied any chest pain currently or shortness of breath at this time. He does report chest pain on exertion described as a pressure in his chest for the past 3 months. He reports he had a cardiac cath two years ago that showed a 50% blockage and a 20% blockage that was not intervened on. He denies fevers, chills, cough, recent travel history. He denies abdominal pain . He reports lightheadedness if he closes his eyes in the shower, but otherwise none. He denies palpitations. - Objective Result Diagrams: 08/12/20 05:37 08/12/20 05:37 Additional Labs: Accuchecks 08/12/20 09:50 POC Glucose 253 H Hospitalist ROS - Review of Systems ROS unobtainable: due to endotracheal tube Constitutional: denies: fever, chills Respiratory: reports: SOB with excertion Cardiovascular: reports: chest pain Gastrointestinal: denies: diarrhea Musculoskeletal: denies: neck pain, shoulder pain Neurological: reports: other (denies dizziness) Other: Denies travel - Medication Medications: Active Medications Generic Name Dose Route Start Last Admin Trade Name Calvinq PRN Reason Stop Dose Admin Allopurinol 300 mg 08/12/20 09:00 08/12/20 09:52 Allopurinol 300 Mg Tab PO 300 mg DAILY MOHINI Administration Sodium Chloride 1,000 mls @ 50 mls/hr 08/12/20 08:45 08/12/20 09:15 Normal Saline 0.9% IV 1,000 mls .Q20H MOHINI Administration Insulin Human Lispro 0 units 08/12/20 09:29 08/12/20 10:28 Humalog 300 Units/3 Ml Vial SC 4 unit .MILD SLIDING SCALE PRN Administration Mild Correctional Scale - Exam General Appearance: NAD, awake alert ENT: normocephalic atraumatic Heart: RRR, no murmur, no gallops, no rubs Respiratory: CTAB, no wheezes, no rales Gastrointestinal: soft, non-tender, non-distended, normal bowel sounds Extremities: no cyanosis, no clubbing, no edema Skin: normal turgor, no lesions, no rashes Neurological: cranial nerve grossly intact Psychiatric: normal affect, normal behavior, A&O x 3, oriented to person, oriented to place, oriented to time Hosp A/P - Plan EKG: Inverted Q-waves noted in inferior leads. Chest X ray: No radiographic evidence of acute cardiopulmonary process. This is a 75 year old male with history of hypertension, diabetes, CAD who presented to the ER with chest pain #Chest pain - likely stable angina - troponins negative x3 collected at 5p and 8p 03/11. Given recent hx of worsening on exertion, and improving with rest, suspect cardiovascular etiology. He has previous hx of CAD occlusion 2 years ago - cardiology was consulted, and there is plan for cardiac cath tomorrow possibly #NAYELY on CKD - - improving . Creatinine today is 1.54 (yesterday 1.63). Baseline creatinine around 1.4. - Continue fluids #HTN - controlled. Continue to monitor, Hold home meds. #Diabetes - controlled. His Metformin was discontinued prior to admission to facilitate kidney function. Will continue with sliding scale insulin for now and monitor Attending addendum: I have seen and examined the patient with the medical student and agree with the plan. The patient has no chest pain currently. He does report exertional chest pain and does not take nitroglycerin for unclear reason. On exam: patient has no murmurs. Lungs are clear. He has no edema Plan: #Chest pain with history of CAD - possibly angina #NAYELY #HTN #Diabetes -the patient has elevated creatinine which is improving with fluids. Cardiology plans to hydrate with fluids until his kidney function has improved prior to doing cardiac cath. Will keep NPO at midnight in case it can be done tomorrow
--- NOTE | 2020-08-12 18:11 | CON ---
DATE OF CONSULTATION: HISTORY OF PRESENT ILLNESS: Major Calloway is a 75-year-old white male admitted with increasing shortness of breath and chest discomfort. He was first seen in May 2001 with left-sided chest pain. He underwent treadmill testing, exercised for 10 minutes, and the treadmill was negative for ischemia. He was again seen in early 2016 when he was found to have a new right bundle- branch block on his EKG. He underwent Lexiscan Cardiolite testing, which revealed a fixed inferior wall defect. He then underwent cardiac catheterization on September 03, 2016. There was 30% proximal LAD, 30% mid LAD, 10% first obtuse marginal, 50% mid RCA, and 20% right posterior descending. He has continued to be followed to manage his hypercholesterolemia. He then presented on July 03, 2020, stating that for one month with exertion, he would become short of breath, which was a new symptom for him. He denied any chest discomfort or diaphoresis. He then underwent repeat Lexiscan Cardiolite testing. This revealed mild ischemia of the proximal anterior wall, apex, proximal lateral wall and proximal to mid septum. He did have problems with renal insufficiency with creatinine up to 2.62. Lisinopril was discontinued and his creatinine is now down to 1.54. With the abnormal Cardiolite, it was recommended that he undergo cardiac catheterization; however, I was waiting for the creatinine to improve. This did improve and now we had been delayed due to COVID and no elective procedures is being performed that require admission. It was felt that he would need to be admitted the day prior to catheterization for intravenous hydration. Over this past weekend, he states that his breathing became somewhat worse. He was working cattle, throwing hay timoteo, became increasingly short of breath and developed chest pressure, which was also a new finding for him and he came to the emergency room for further evaluation. PAST MEDICAL HISTORY: Mild coronary artery disease, hypercholesterolemia, interatrial septal aneurysm, hypertension, diabetes, CVA with Plavix added in May 2018. OPERATIONS: Right elbow surgery. MEDICATIONS: 1. Aspirin 81 daily. 2. Clopidogrel 75 mg daily. 3. Atorvastatin 20 mg 1/2 tablet daily. 4. NovoLog FlexPen. 5. Hydralazine 100 mg t.i.d. 6. Metoprolol 100 mg 1/2 tablet q.a.m. 7. Allopurinol 300 daily. 8. Metformin 1000 mg b.i.d. 9. Flonase. 10. Amlodipine 10 mg 1/2 tablet daily. 11. Isosorbide mononitrate 30 daily. 12. Furosemide 20 daily. ALLERGIES: NONE. SOCIAL HISTORY: He does not smoke or drink. REVIEW OF SYSTEMS: A 10-point review of systems is otherwise unremarkable. PHYSICAL EXAMINATION: VITAL SIGNS: Blood pressure 149/76, pulse 77. HEENT: PERRL. NECK: Supple. CHEST: Clear. CARDIAC: S1 and S2 normal without any S3, S4, or murmurs. Carotid upstrokes normal without bruits. ABDOMEN: Normal bowel sounds without tenderness or organomegaly. EXTREMITIES: Revealed no clubbing, cyanosis, or edema. NEUROLOGIC: Grossly intact. SKIN: Warm and dry. LABORATORY DATA: EKG reveals normal sinus rhythm with poor R-wave progression, possible inferior MS. Sodium 139, potassium 4.0, chloride 103, carbon dioxide 26, BUN 28, creatinine 1.54, glucose 259. Cholesterol 128, triglycerides 362, HDL 25, LDL 31. Troponin I is normal. COVID negative. Hemoglobin 13.3, hematocrit 41.1, white count 6100, platelets 156,000. IMPRESSION: 1. Acute coronary syndrome. 2. Finding of mild ischemia in the proximal anterior wall, apex, proximal lateral wall, proximal to mid septum on Cardiolite scan recently. 3. Onset of exertional dyspnea over the last 2 months. 4. Mild coronary artery disease on catheterization in August 2016. 5. Diabetes mellitus. 6. Hypercholesterolemia, LDL well controlled, however, triglycerides very elevated. He could not afford Vasepa. 7. Hypertension. 8. Diastolic dysfunction. 9. History of premature atrial contractions. 10. Aortic sclerosis. 11. Atrial septal aneurysm. 12. Chronic kidney disease, which is improved with discontinuation of lisinopril from a creatinine of 2.62 down to a creatinine of 1.54. RECOMMENDATIONS: Mr. Calloway has been started on intravenous saline 50 mL/h. Creatinine will be rechecked in the morning. It was recommended that he undergo cardiac catheterization and risks of this already have been previously discussed in the hospital as outlined in the office note. He agrees and we will proceed in the morning with re-evaluation. Job ID: [id number] [facility]
[2020-08-12] MEDS ORDERED: Non-Formulary Item 1 EACH (Insulin Detemir 100 Units/Ml [Levemir] 100 UNITS/ML Vial) SQ SCH (21:00)
[2020-08-12] MEDS ORDERED: Atorvastatin Calcium 20 MG TAB PO SCH (21:00)
[2020-08-12] MEDS: hydrALAZINE 25 MG TAB PO SCH (22:12)
[2020-08-12] MEDS: Atorvastatin Calcium 10 MG TAB PO SCH (22:13)
[2020-08-12] MEDS: Icosapent Ethyl 1 GM CAPSULE PO SCH (22:13)
[2020-08-12] MEDS: Insulin Glargine 25 UNITS in Pre-Filled Syringe 1 EACH SC SCH (22:14)
[2020-08-13 04:49] LABS: Anion Gap 14 mmol/L (10-20); BUN (Urea Nitrogen) 25 mg/dL (8.4-25.7); Calc. Creatinine Clearance 75 mL/min (70-130); Carbon Dioxide 25 mmol/L (23-31); Chloride 102 mmol/L (98-107); Glucose 274 mg/dL (83-110); Potassium 4.3 mmol/L (3.5-5.1); Sodium 137 mmol/L (136-145)
[2020-08-13] MEDS: Icosapent Ethyl 1 GM CAPSULE PO SCH ×2 (05:49→21:21)
[2020-08-13] MEDS: hydrALAZINE 25 MG TAB PO SCH ×3 (05:50→21:19)
[2020-08-13] MEDS: Multivit, Therapeutic 1 TAB PO SCH (05:51)
[2020-08-13] MEDS: Sodium Chloride 0.9% 1,000 ML IV SCH (05:52)
[2020-08-13] MEDS: Amlodipine 5 MG TAB PO SCH (05:52)
[2020-08-13] MEDS: Allopurinol 300 MG TAB PO SCH (05:52)
[2020-08-13] MEDS: Insulin Glargine 25 UNITS in Pre-Filled Syringe 1 EACH SC SCH ×2 (08:43→21:22)
[2020-08-13] MEDS ORDERED: Heparin 10,000 UNITS/ 10 ML VIAL ONE (08:56)
[2020-08-13] MEDS ORDERED: Iopamidol 370 76% 50 ML VIAL FS ONE (09:43)
[2020-08-13] MEDS ORDERED: Iopamidol 370 76% 100 ML VIAL ONE (09:43)
[2020-08-13] MEDS ORDERED: Loratadine 10 MG TAB PO PRN (10:38)
[2020-08-13] MEDS ORDERED: Midazolam HCl 2 mg/2 ml Vial ONE (12:05)
[2020-08-13] MEDS ORDERED: Fentanyl 100 MCG/2 ML VIAL ONE (12:05)
[2020-08-13] MEDS ORDERED: Bivalirudin 250 MG VIAL ONE (12:21)
[2020-08-13] MEDS ORDERED: Nitroglycerin 100MG/250ML BOT 250 ML ONE (12:25)
[2020-08-13] MEDS ORDERED: Clopidogrel Bisulfate 300 MG TAB ONE (12:37)
[2020-08-13] MEDS ORDERED: Morphine 4 MG/ML VIAL SLOW IVP PRN (13:14)
[2020-08-13] MEDS ORDERED: Morphine 2 MG/ML VIAL SLOW IVP PRN (13:14)
[2020-08-13] MEDS ORDERED: Sodium Chloride 0.9% 1,000 ML IV SCH ×2 (13:16→19:00)
--- NOTE | 2020-08-13 17:01 | PDOC.HOSPP ---
- Subjective Encounter Date: 08/13/20 Subjective: F/u: CAD The patient had cardiac cath today. He denies any chest pain or shortness of breath - Objective Vital Signs & Weight: Vital Signs (12 hours) Temp Pulse Resp BP BP BP Pulse Ox 08/13/20 16:15 96.8 F L 56 L 16 138/70 138/70 95 08/13/20 07:48 95 08/13/20 07:35 95 08/13/20 07:28 96.1 F L 70 16 129/69 95 08/13/20 05:52 71 162/74 H 08/13/20 05:50 71 162/74 H Weight Weight 259 lb 14.8 oz I&O: 08/12/20 08/13/20 08/14/20 06:59 06:59 06:59 Intake Total 960 575 Output Total 0 Balance 960 575 Result Diagrams: 08/12/20 05:37 08/13/20 03:56 Additional Labs: Accuchecks 08/13/20 08/13/20 08/13/20 16:37 10:39 05:54 POC Glucose 250 H 300 H 265 H 08/12/20 20:47 POC Glucose 312 H Hospitalist ROS - Review of Systems Constitutional: denies: fever, chills - Medication Medications: Active Medications Generic Name Dose Route Start Last Admin Trade Name Calvinq PRN Reason Stop Dose Admin Allopurinol 300 mg 08/12/20 09:00 08/13/20 05:52 Allopurinol 300 Mg Tab PO 300 mg DAILY MOHINI Administration Amlodipine Besylate 5 mg 08/13/20 09:00 08/13/20 05:52 Amlodipine 5 Mg Tab PO 5 mg DAILY MOHINI Administration Atorvastatin Calcium 10 mg 08/12/20 21:00 08/12/20 22:13 Atorvastatin Calcium 10 Mg Tab PO 10 mg HS MOHINI Administration Hydralazine HCl 100 mg 08/12/20 21:00 08/13/20 05:50 Hydralazine 25 Mg Tab PO 100 mg TID MOHINI Administration Insulin Glargine 25 units/ 0.25 mls @ 0 mls/hr 08/12/20 21:00 08/12/20 22:14 Miscellaneous Medication SC 0.25 mls BID MOHINI Administration Insulin Human Lispro 0 units 08/12/20 09:29 08/12/20 10:28 Humalog 300 Units/3 Ml Vial SC 4 unit .MILD SLIDING SCALE PRN Administration Mild Correctional Scale Isosorbide Mononitrate 30 mg 08/13/20 09:00 08/13/20 05:51 Isosorbide Mononitrate Er 30 Mg Tab PO 30 mg DAILY MOHINI Administration Metoprolol Succinate 150 mg 08/13/20 09:00 08/13/20 05:51 Metoprolol Succinate Xl 50 Mg Tab PO 150 mg QAM MOHINI Administration Miscellaneous Medication 2 gm 08/12/20 21:00 08/13/20 05:49 Icosapent Ethyl 1 Gm Capsule PO 2 gm BID MOHINI Administration Multivitamins 1 tab 08/13/20 09:00 08/13/20 05:51 Multivit, Therapeutic 1 Tab PO 1 tab DAILY MOHINI Administration - Exam General Appearance: NAD, awake alert Eye: PERRL, anicteric sclera ENT: normocephalic atraumatic, no oropharyngeal lesions Neck: no JVD Heart: RRR, no murmur, no gallops, no rubs Respiratory: CTAB, no wheezes, no rales, no ronchi Gastrointestinal: soft, non-tender, non-distended, normal bowel sounds Extremities: no cyanosis, no clubbing, no edema Extremities - other findings: right groin area with no aneurysm Skin: normal turgor, no lesions, no rashes Neurological: cranial nerve grossly intact, normal sensation to touch, no weakness Hosp A/P - Plan EKG: Inverted Q-waves noted in inferior leads. Chest X ray: No radiographic evidence of acute cardiopulmonary process. Cardiac cath: LAD 30% proximal lesion and 30% mid. Circumflex 80% OM1, RCA 50% mid This is a 75 year old male with history of hypertension, diabetes, CAD who presented to the ER with chest pain #Chest pain secondary to stable angina #CAD -troponins were negative. Cardiac cath showed 80% lesion in the OM1, LAD showed proximal 30% lesion. ARACELI was placed - continue aspirin and plavix . Will monitor for another day, consider discharge tomorrow #NAYELY on CKD - - improving . Creatinine today is 1.4 #HTN - controlled. Continue to monitor, Hold home meds. #Diabetes - controlled. His Metformin was discontinued prior to admission to facilitate kidney function. Will continue with sliding scale insulin for now and monitor
[2020-08-13] MEDS: HumaLOG 300 UNITS/3 ML VIAL SC PRN (17:26)
[2020-08-13] MEDS: Atorvastatin Calcium 10 MG TAB PO SCH (21:21)
[2020-08-14 03:52] VITALS: BMI 35.9
[2020-08-14 05:15] LABS: #Eosinphils 0.1 thou/uL (0.0-0.7); #Lymphocytes 0.8 thou/uL (1.20-3.40); #Monocytes 0.7 thou/uL (0.11-0.59); #Neutrophils 3.7 thou/uL (1.40-6.50); %Basophils 0.3 % (0.0-1.0); %Eosinophils 2.2 % (0.0-10.0); %Lymphocytes 15.4 % (21.0-51.0); %Monocytes 12.1 % (0.0-10.0); Hemoglobin 13.1 g/dL (14.0-18.0); Mean Corpuscular HGB CONC 33.5 g/dL (32.0-36.0); Mean Corpuscular Hemoglobin 28.7 pg (27.0-31.0); Mean Corpuscular Volume 85.6 fL (78.0-98.0); Mean Platelet Volume 6.4 fL (7.4-10.4); Platelet Count 141 thou/uL (130-400); RBC Distribution Width 12.9 % (11.5-14.5); Red Blood Cell (RBC) Count 4.57 mill/uL (4.70-6.10); White Blood Cell (WBC) Count 5.3 thou/uL (4.8-10.8)
[2020-08-14 05:47] LABS: ALT (SGPT) 16 U/L (8-55); AST (SGOT) 11 U/L (5-34); Alkaline Phosphatase 58 U/L (40-110); Anion Gap 14 mmol/L (10-20); BUN (Urea Nitrogen) 20 mg/dL (8.4-25.7); Bilirubin, Total 0.4 mg/dL (0.2-1.2); Calc. Creatinine Clearance 75 mL/min (70-130); Calcium 8.8 mg/dL (7.8-10.44); Carbon Dioxide 24 mmol/L (23-31); Chloride 104 mmol/L (98-107); Globulin 2.6 g/dL (2.4-3.5); Glucose 205 mg/dL (83-110); Potassium 4.1 mmol/L (3.5-5.1); Protein, Total 6.6 g/dL (5.8-8.1); Sodium 138 mmol/L (136-145)
[2020-08-14 07:24] VITALS: BP 150/70; TEMP 97.4
[2020-08-14] MEDS ORDERED: Fish Oil 1,000 MG CAP PO SCH (09:00)
[2020-08-14] MEDS ORDERED: Clopidogrel Bisulfate 75 MG TAB PO SCH (09:00)
[2020-08-14] MEDS ORDERED: Aspirin 81 mg Enteric Coated Tablet PO SCH (09:00)
[2020-08-14] MEDS: Multivit, Therapeutic 1 TAB PO SCH (09:37)
[2020-08-14] MEDS: hydrALAZINE 25 MG TAB PO SCH (09:37)
[2020-08-14] MEDS: Allopurinol 300 MG TAB PO SCH (09:38)
[2020-08-14] MEDS: Amlodipine 5 MG TAB PO SCH (09:38)
[2020-08-14] MEDS: Icosapent Ethyl 1 GM CAPSULE PO SCH (09:38)
[2020-08-14] MEDS: Insulin Glargine 25 UNITS in Pre-Filled Syringe 1 EACH SC SCH (09:39)
--- NOTE | 2020-08-14 10:35 | EKG ---
Test Reason : S/P STENT Blood Pressure : / mmHG Vent. Rate : 055 BPM Atrial Rate : 055 BPM P-R Int : 206 ms QRS Dur : 088 ms QT Int : 456 ms P-R-T Axes : 065 -21 014 degrees QTc Int : 436 ms Sinus bradycardia Inferior infarct , age undetermined cannot be excluded Abnormal ECG Confirmed by JAKUB SWANN ([id number]) on 08/14/2020 10:35:28 AM Referred By: JEREMI Confirmed By:JAKUB SWANN
--- NOTE | 2020-08-14 15:48 | PDOC.DS.DS ---
Provider - Provider Date of Admission: 08/12/20 12:59 Date of Discharge: 08/14/20 Admitting Provider: Alberto Iqbal MD Primary Care Physician: Wil Jang MD Course - Hospital Course Hospital Course: Discharge Diagnoses: 1. Chest pain secondary to stable angina s/p PCI of circumflex OM1 2. NAYELY on CKD 3. Hypertension 4. Diabetes Brief HPI: This is a 75-year-old gentleman who presented to the ER with progressively worsening chest pain on exertion. He had a cardiac cath in 2017 which showed 50% lesion in the LAD and 30% in the RCA. He was advised by his rubber flap tuber machine operator to come to the ER if his symptoms persist. EKG showed Q waves in t he inferior leads. Chest Xray was normal. The patient was admitted for further workup. Hospital Course: #Chest pain secondary to stable angina s/p PCI to OM1: serial troponins were negative. Cardiology was consulted. Cardiac cath showed 80% lesion in the OM1, LAD showed proximal 30% lesion. Drug eluting stent was placed to OM1 branch of the circumflex. The patient was started on plavix in addition to aspirin. He remained chest pain free at the time of discharge and his groin site did not show any signs of hematoma. He will be discharged and will follow up with Dr. Vidales in a week to two weeks. #NAYELY on CKD : the patient presented with a creatinine of 1.6. He was hydrated with IV fluids and his creatinine improved to 1.4 on the day of discharge. He was advised to resume his insulin. His metformin was discontinued as an outpatient. Pertinent Studies: EKG: Inverted Q-waves noted in inferior leads. Chest X ray: No radiographic evidence of acute cardiopulmonary process. Cardiac cath: LAD 30% proximal lesion and 30% mid. Circumflex 80% OM1, RCA 50% mid Procedures: Cardiac cath 08/13 Resuscitation Status: 08/11/20 20:40 Resuscitation Status Routine Co-Sign Provider: Resuscitation Status: FULL: Full Resuscitation - Labs Lab Results: 08/14/20 04:07 08/14/20 04:07 Abnormal Lab Results - Last 48 hrs 08/13/20 03:56: Creatinine 1.41 H 08/13/20 15:03: Activated Clotting Time 169 H 08/14/20 04:07: Creatinine 1.40 H 08/14/20 04:07: RBC 4.57 L, Hgb 13.1 L, Hct 39.1 L, MPV 6.4 L, Lymphocytes % 15.4 L, Monocytes % 12.1 H, Lymphocytes # 0.8 L, Monocytes # 0.7 H - Physical Exam Vitals: Vital Signs (12 hours) Temp Pulse Resp BP BP Pulse Ox 08/14/20 09:38 57 L 08/14/20 09:37 57 L 08/14/20 07:32 100 08/14/20 07:23 97.4 F L 57 L 16 150/70 H 100 08/14/20 03:51 98.4 F 68 16 127/65 100 Weight Weight 258 lb Physical Exam: The patient was seen and examined on the day of discharge. General Appearance: NAD, awake alert Eye: PERRL, anicteric sclera ENT: normocephalic atraumatic, no oropharyngeal lesions Neck: no JVD Heart: RRR, no murmur, no gallops, no rubs Respiratory: CTAB, no wheezes, no rales, no ronchi Gastrointestinal: soft, non-tender, non-distended, normal bowel sounds Extremities: no cyanosis, no clubbing, no edema Extremities - other findings: right groin area with no aneurysm Skin: normal turgor, no lesions, no rashes Neurological: cranial nerve grossly intact, normal sensation to touch, no weakness Plan - Discharge Medications Prescriptions: Nitroglycerin [Nitrostat] 0.4 mg SL Q5MIN PRN #30 tab PRN Reason: Chest Pain Aspirin [Ecotrin Low Strength] 81 mg PO DAILY #30 tab Clopidogrel Bisulfate [Plavix] 75 mg PO DAILY #30 tab Home Medications: Medication Instructions Recorded Confirmed Type Allopurinol 300 mg PO DAILY 08/28/16 08/12/20 History Amlodipine Besylate [amLODIPine 0.5 tab PO DAILY 08/28/16 08/12/20 History Besylate] Atorvastatin Calcium 0.5 tab PO HS 08/28/16 08/12/20 History Insulin Detemir 100 UNITS/ML 25 unit SQ BID 08/28/16 08/12/20 History [Levemir] Insulin Aspart [Novolog] 25 unit SQ TID 04/07/18 08/12/20 History Metoprolol Succinate [Toprol Xl] 150 mg PO QAM 04/07/18 08/12/20 History hydrALAZINE HCl [Hydralazine HCl] 100 mg PO TID 04/07/18 08/12/20 History Multivit, Therapeutic [Theragran] 1 tab PO DAILY tab 06/07/18 08/12/20 Rx Acetaminophen [Tylenol Extra 500 mg PO PRN PRN 08/12/20 08/12/20 History Strength] Famotidine [Pepcid] 40 mg PO DAILY 08/12/20 08/12/20 History Icosapent Ethyl [Vascepa] 2 g PO BID 08/12/20 08/12/20 History Isosorbide Mononitrate [Imdur ER] 30 mg PO DAILY 08/12/20 08/12/20 History Mecobalamin [B12 Active] 5,000 mcg PO DAILY 08/12/20 08/12/20 History Aspirin [Ecotrin Low Strength] 81 mg PO DAILY #30 tab 08/14/20 Rx Clopidogrel Bisulfate [Plavix] 75 mg PO DAILY #30 tab 08/14/20 Rx Nitroglycerin [Nitrostat] 0.4 mg SL Q5MIN PRN #30 tab 08/14/20 Rx Allergies: No Known Allergies Allergy (Verified 08/12/20 08:34) - Discharge Instructions Discharge Instructions:: You presented with chest pain. You were found to have an 80% blockage in your l eft circumflex. Your other lesions were unchanged. Please start taking plavix 75 mg daily, aspirin 81 mg daily and continue your statin. Follow up with your rubber flap tuber machine operator in a week. Activity:: Activity as Tolerated Nourishment:: Heart Healthy Diet - Follow up Plan Referrals: Wil Jang MD [Primary Care Provider] - 7 Days (Please call the office and schedule a follow up appointment) Smith Vidales MD [Active] - 2-3 Weeks (Please call the office and schedule a follow up appointment) Disposition: HOME Quality - Care Measures CORE MEASURES:: N/A
--- NOTE | 2020-08-31 20:35 | EKG ---
Test Reason : Blood Pressure : / mmHG Vent. Rate : 076 BPM Atrial Rate : 076 BPM P-R Int : 208 ms QRS Dur : 080 ms QT Int : 376 ms P-R-T Axes : 050 -10 023 degrees QTc Int : 423 ms Normal sinus rhythm Inferior infarct , age undetermined Anterior infarct , age undetermined Abnormal ECG Confirmed by GABI BARNES, JENNIFER ([id number]), film editor JAY CATES ([id number]) on 08/31/2020 8:34:46 PM Referred By: Confirmed By:JENNIFER ASHLEY MD
== END 2020-08-14 10:25 | disposition home or self-care (01) | DRG 247 ==
LOC: ERS 16:24 → ERHOLD 19:40 → OBSVTOIN 08-12 12:59 → 2NO 08-12 17:55
PROVIDERS: ADMIT Student in an Organized Health Care Education/Training Program; ATTEND Internal Medicine
PROC: 027034Z Dilation of Coronary Artery, One Artery with Drug-eluting Intraluminal Device, Percutaneous Approach (ICD-10-PCS; principal; 2020-08-12)
PROC: B2111ZZ Fluoroscopy of Multiple Coronary Arteries using Low Osmolar Contrast (ICD-10-PCS; 2020-08-12)
DX: I25.118 Atherosclerotic heart disease of native coronary artery with other forms of angina pectoris (principal); N17.9 Acute kidney failure, unspecified; E11.22 Type 2 diabetes mellitus with diabetic chronic kidney disease; N18.9 Chronic kidney disease, unspecified; K21.9 Gastro-esophageal reflux disease without esophagitis; M10.9 Gout, unspecified; E66.9 Obesity, unspecified; I70.0 Atherosclerosis of aorta; I12.9 Hypertensive chronic kidney disease with stage 1 through stage 4 chronic kidney disease, or unspecified chronic kidney disease; E78.00 Pure hypercholesterolemia, unspecified; Z86.73 Personal history of transient ischemic attack (TIA), and cerebral infarction without residual deficits; Z79.01 Long term (current) use of anticoagulants
CPT/HCPCS: 36415; 36416; 71045; 80048; 80053; 80061; 83690; 83735; 84443; 84484; 85025; 85347; 87635; 92928; 93005; 93010; 93454; 94760; 97139; C1874; C9600; G0378; J0583; J1644; J1815; J2250; J3010; Q9967; U0003; U0005

== ENCOUNTER 2022-07-28 13:57 | Emergency (ER) | payer MEDICARE ==
[2022-07-28] MEDS ORDERED: Clindamycin/D5W 900 mg/50 ml Premix Bag ONE (14:23)
[2022-07-28 14:27] LABS: #Eosinphils 0.2 thou/uL (0.0-0.7); #Lymphocytes 1.5 thou/uL (1.20-3.40); #Monocytes 0.7 thou/uL (0.11-0.59); #Neutrophils 4.8 thou/uL (1.40-6.50); %Basophils 0.1 % (0.0-1.0); %Eosinophils 2.4 % (0.0-10.0); %Lymphocytes 20.5 % (21.0-51.0); %Monocytes 9.9 % (0.0-10.0); %Neutrophils 67.1 % (42.0-75.0); Mean Corpuscular HGB CONC 33.7 g/dL (32.0-36.0); Mean Corpuscular Hemoglobin 29.5 pg (27.0-31.0); Mean Corpuscular Volume 87.5 fl (78.0-98.0); Mean Platelet Volume 6.3 fL (7.4-10.4); Platelet Count 179 10x3/uL (130-400); RBC Distribution Width 12.9 % (11.5-14.5); Red Blood Cell (RBC) Count 4.39 mill/uL (4.70-6.10); White Blood Cell (WBC) Count 7.2 10x3/uL (4.8-10.8)
[2022-07-28 14:37] LABS: ALT (SGPT) 16 U/L (8-55); AST (SGOT) 14 U/L (5-34); Albumin 4.5 g/dL (3.4-4.8); Alkaline Phosphatase 61 U/L (40-110); Anion Gap 15 mmol/L (10-20); BUN (Urea Nitrogen) 20 mg/dL (8.4-25.7); Bilirubin, Total 0.5 mg/dL (0.2-1.2); Calc. Creatinine Clearance 0 mL/min (70-130); Calcium 9.9 mg/dL (7.8-10.44); Carbon Dioxide 23 mmol/L (23-31); Chloride 105 mmol/L (98-107); Estimated GFR 40; Globulin 2.8 g/dL (2.4-3.5); Glucose 148 mg/dL (83-110); Potassium 4.8 mmol/L (3.5-5.1); Protein, Total 7.3 g/dL (5.8-8.1); Sodium 138 mmol/L (136-145)
== END 2022-07-28 15:49 | disposition home or self-care (01) ==
LOC: ERS 13:57
DX: L03.116 Cellulitis of left lower limb (principal); E11.9 Type 2 diabetes mellitus without complications; K21.9 Gastro-esophageal reflux disease without esophagitis; I10 Essential (primary) hypertension; Z79.899 Other long term (current) drug therapy; Z79.82 Long term (current) use of aspirin
CPT/HCPCS: 36415; 80053; 83605; 85025; 96365; J3490

== ENCOUNTER 2025-04-09 10:56 | Outpatient (CLI) | payer MEDICARE, OTHER ==
[2025-04-09 12:00] LABS: Estimated GFR - POC 43.0
== END 2025-04-09 10:57 | disposition home or self-care (01) ==
LOC: SCSMRI 10:56
PROVIDERS: ATTEND Urology
DX: C61 Malignant neoplasm of prostate (principal)
CPT/HCPCS: 36415; 72197; 82565

== ENCOUNTER 2025-04-30 13:22 | Outpatient (CLI) | payer MEDICARE | END 2025-04-30 13:23 | disposition home or self-care (01) | LOC: LABBT 13:22 | PROVIDERS: ATTEND Thoracic Surgery (Cardiothoracic Vascular Surgery) | DX: Z01.818 Encounter for other preprocedural examination (principal); I25.10 Atherosclerotic heart disease of native coronary artery without angina pectoris | CPT/HCPCS: 71046 ==

== ENCOUNTER 2025-04-30 13:30 | Inpatient (IN) | payer MEDICARE ==
[2025-04-30 14:21] LABS: #Basophils Less than 0.03 10x3/uL (0.0-0.2); #Eosinophils 0.09 10x3/uL (0.0-0.7); #Monocytes 0.50 10x3/uL (0.11-0.59); #Neutrophils 3.25 10x3/uL (1.40-6.50); %Basophils 0.2 % (0.0-1.0); %Eosinophils 1.8 % (0.0-10.0); %Lymphocytes 24.2 % (21.0-51.0); %Monocytes 9.8 % (0.0-10.0); %Neutrophils 63.4 % (42.0-75.0); Hematocrit 40.3 % (42.0-52.0); Hemoglobin 12.8 g/dL (14.0-18.0); Mean Corpuscular Hemoglobin 27.5 pg (27.0-31.0); Mean Corpuscular Volume 86.5 fL (78.0-98.0); Platelet Count 147 10x3/uL (130-400); Red Blood Cell (RBC) Count 4.66 mill/uL (4.70-6.10); White Blood Cell (WBC) Count 5.12 10x3/uL (4.8-10.8)
[2025-04-30 14:33] LABS: Anion Gap 15 mmol/L (10-20); BUN (Urea Nitrogen) 20 mg/dL (8.4-25.7); Calc. Creatinine Clearance 0 mL/min (70-130); Calcium 9.3 mg/dL (7.8-10.44); Carbon Dioxide 26 mmol/L (23-31); Chloride 109 mmol/L (98-107); Glucose 249 mg/dL (83-110); Potassium 4.6 mmol/L (3.5-5.1); Sodium 145 mmol/L (136-145)
[2025-05-02] MEDS ORDERED: PHENYLEPHRINE-NS 100 MCG/ML 10 ML SYRINGE ONE ×2 (06:37→06:56)
[2025-05-02] MEDS ORDERED: fentaNYL PF 100 MCG/2 ML SYRINGE ONE ×4 (06:52→08:04)
[2025-05-02] MEDS ORDERED: PROPOFOL 20 ML ONE ×2 (06:52→08:05)
[2025-05-02] MEDS ORDERED: Rocuronium Bromide 10 MG/ML (10ML VIAL) ONE ×2 (06:56→08:54)
[2025-05-02] MEDS ORDERED: Lidocaine 2% PF 100 mg/5 ml Syringe ONE (06:56)
[2025-05-02] MEDS ORDERED: CEFAZOLIN 1 GM VIAL ONE (06:56)
[2025-05-02] MEDS ORDERED: Ondansetron PF 4 MG/2 ML Vial ONE (06:56)
[2025-05-02] MEDS ORDERED: CEFAZOLIN 2 GM VIAL ONE (07:13)
[2025-05-02] MEDS ORDERED: Heparin 10,000 UNITS/1 ML VIAL 30,000 UNITS in Sodium Chloride 0.9% 1,000 ML FS SCH (07:30)
[2025-05-02] MEDS ORDERED: Hetastarch 6% 500 ML 500 ML IVPB PRN (10:26)
[2025-05-02] MEDS ORDERED: Albumin 5% 12.5 GM (250 mL) BOT IVPB PRN ×2 (10:26)
[2025-05-02] MEDS ORDERED: Bisacodyl 10 MG SUPP PR PRN (10:26)
[2025-05-02] MEDS ORDERED: Mag-Al 1200 mg/1200 mg/30 ML UDCUP PO PRN (10:26)
[2025-05-02] MEDS ORDERED: NOREPINEPHRINE 8 MG/250 ML-D5W 250 ML IVPB PRN (10:26)
[2025-05-02] MEDS ORDERED: Glucagon 1 MG/ML KIT SC PRN (10:30)
[2025-05-02] MEDS ORDERED: Dextrose 50% Abboject 50 ML SYRINGE SLOW IVP PRN (10:30)
[2025-05-02 10:33] LABS: Actual Bicarbonate (HCO3a) 23.5 mEq/L (22-28); Base Excess (BEa) -3.4 mEq/L (-2.0 to +3.0); CO2 Tension 50.1 mmHg (35.0-45.0); Calcium, Ionized (arterial) 1.13 mmol/L (1.12-1.30); Hematocrit-ABG 35 % (42.0-52.0); Hemoglobin (Hb) 11.8 g/dL (14.0-18.0); O2 Tension (PaO2), arterial 77.4 mmHg (> 60.0); Potassium - ABG Lab 4.27 mmol/L (3.70-5.30); pH, Arterial 7.289 (7.35-7.45)
[2025-05-02 10:35] LABS: ALV-art Gradient 287.775 mmHg (0-20); Puncture Site Arterial Line
[2025-05-02 10:41] LABS: #Basophils Less than 0.03 10x3/uL (0.0-0.2); #Eosinophils 0.15 10x3/uL (0.0-0.7); #Monocytes 0.82 10x3/uL (0.11-0.59); #Neutrophils 5.43 10x3/uL (1.40-6.50); %Basophils 0.2 % (0.0-1.0); %Eosinophils 1.8 % (0.0-10.0); %Lymphocytes 21.1 % (21.0-51.0); %Monocytes 9.9 % (0.0-10.0); %Neutrophils 65.4 % (42.0-75.0); Hematocrit 32.9 % (42.0-52.0); Hemoglobin 10.7 g/dL (14.0-18.0); Mean Corpuscular Hemoglobin 27.8 pg (27.0-31.0); Mean Corpuscular Volume 85.5 fL (78.0-98.0); Platelet Count 124 10x3/uL (130-400); Red Blood Cell (RBC) Count 3.85 mill/uL (4.70-6.10); White Blood Cell (WBC) Count 8.30 10x3/uL (4.8-10.8)
[2025-05-02] MEDS: Magnesium 2 GM/50 ML(in water) 2 GM in Premix 1 BAG IVPB SCH (10:52)
[2025-05-02 10:55] LABS: INR-International Normal Ratio 1.0; PTT 30.5 sec (22.9-36.1); Prothrombin Time 13.7 sec (12.0-14.7)
[2025-05-02] MEDS: D5 1/2 NS w/20 mEq KCL 1,000 ML IV SCH (10:56)
[2025-05-02] MEDS: Ketorolac Tromethamine 30 MG (1 mL) VIAL IVP SCH (10:57)
[2025-05-02] MEDS: Post-Op Insulin Drip Protocol IVPB ONE (10:58)
[2025-05-02] MEDS ORDERED: Lidocaine 2% 6 ML (Jelly) SYR ONE (10:58)
[2025-05-02 11:23] LABS: Anion Gap 15 mmol/L (10-20); BUN (Urea Nitrogen) 25 mg/dL (8.4-25.7); Calc. Creatinine Clearance 69 mL/min (70-130); Calcium 7.8 mg/dL (7.8-10.44); Carbon Dioxide 20 mmol/L (23-31); Chloride 111 mmol/L (98-107); Glucose 195 mg/dL (83-110); Potassium 4.3 mmol/L (3.5-5.1); Sodium 142 mmol/L (136-145)
[2025-05-02] MEDS: INSULIN REGULAR IN 0.9 % NACL 100 UNITS in Premix 1 BAG IVPB SCH (11:29)
[2025-05-02 11:55] LABS: Actual Bicarbonate (HCO3a) 21.9 mEq/L (22-28); Base Excess (BEa) -4.7 mEq/L (-2.0 to +3.0); CO2 Tension 46.6 mmHg (35.0-45.0); Calcium, Ionized (arterial) 1.15 mmol/L (1.12-1.30); Hematocrit-ABG 36 % (42.0-52.0); Hemoglobin (Hb) 12.1 g/dL (14.0-18.0); Potassium - ABG Lab 4.33 mmol/L (3.70-5.30); pH, Arterial 7.290 (7.35-7.45)
[2025-05-02 13:33] LABS: ALV-art Gradient -59.810 mmHg (0-20); Puncture Site Arterial Line
[2025-05-02 13:50] LABS: Actual Bicarbonate (HCO3a) 21.7 mEq/L (22-28); Base Excess (BEa) -4.4 mEq/L (-2.0 to +3.0); CO2 Tension 44.1 mmHg (35.0-45.0); Calcium, Ionized (arterial) 1.16 mmol/L (1.12-1.30); Hematocrit-ABG 36 % (42.0-52.0); Hemoglobin (Hb) 12.1 g/dL (14.0-18.0); O2 Tension (PaO2), arterial 68.1 mmHg (> 60.0); Potassium - ABG Lab 4.44 mmol/L (3.70-5.30); pH, Arterial 7.310 (7.35-7.45)
[2025-05-02 13:52] LABS: ALV-art Gradient 233.275 mmHg (0-20); Puncture Site Arterial Line
[2025-05-02] MEDS: Gabapentin 300 MG CAP PO SCH (14:50)
[2025-05-02] MEDS: Ondansetron PF 4 MG/2 ML Vial IVP PRN (15:02)
[2025-05-02 15:09] LABS: Hematocrit 35.4 % (42.0-52.0); Hemoglobin 11.5 g/dL (14.0-18.0)
[2025-05-02 15:45] LABS: Potassium 4.3 mmol/L (3.5-5.1)
[2025-05-02] MEDS: hydrALAZINE 20 MG/ML VIAL SLOW IVP PRN (17:33)
[2025-05-02] MEDS: Acetaminophen 325 MG TAB PO PRN (18:54)
[2025-05-02] MEDS: Famotidine/PF 20 mg/2ml Vial SLOW IVP SCH (20:52)
[2025-05-02] MEDS: Nitroglycerin 50 MG/250 ML BOT 250 ML IVPB PRN (22:13)
[2025-05-03 03:54] LABS: #Basophils Less than 0.03 10x3/uL (0.0-0.2); #Eosinophils Less than 0.03 10x3/uL (0.0-0.7); #Monocytes 1.27 10x3/uL (0.11-0.59); #Neutrophils 9.43 10x3/uL (1.40-6.50); %Basophils 0.1 % (0.0-1.0); %Eosinophils 0.0 % (0.0-10.0); %Lymphocytes 6.2 % (21.0-51.0); %Monocytes 11.1 % (0.0-10.0); %Neutrophils 82.2 % (42.0-75.0); Hematocrit 31.3 % (42.0-52.0); Hemoglobin 10.0 g/dL (14.0-18.0); Mean Corpuscular Hemoglobin 27.9 pg (27.0-31.0); Mean Corpuscular Volume 87.2 fL (78.0-98.0); Platelet Count 128 10x3/uL (130-400); Red Blood Cell (RBC) Count 3.59 mill/uL (4.70-6.10); White Blood Cell (WBC) Count 11.47 10x3/uL (4.8-10.8)
[2025-05-03 04:27] LABS: Anion Gap 10 mmol/L (10-20); BUN (Urea Nitrogen) 21 mg/dL (8.4-25.7); Calc. Creatinine Clearance 105 mL/min (70-130); Calcium 6.4 mg/dL (7.8-10.44); Carbon Dioxide 20 mmol/L (23-31); Chloride 114 mmol/L (98-107); Glucose 91 mg/dL (83-110); Potassium 3.5 mmol/L (3.5-5.1); Sodium 140 mmol/L (136-145)
[2025-05-03] MEDS: Potassium Chloride 20 MEQ (100 mL) BAG IVPB PRN (04:33)
[2025-05-03] MEDS: CALCIUM GLUC 1 GM/NS 50 ML 1 GM in Premix 1 BAG IVPB SCH (06:01)
[2025-05-03] MEDS: Magnesium 2 GM/50 ML(in water) 2 GM in Premix 1 BAG IVPB SCH (08:28)
[2025-05-03] MEDS: Aspirin 325 MG TAB PO SCH (08:29)
[2025-05-03] MEDS: Enoxaparin 40 MG (0.4 mL) SYRINGE SC SCH (08:29)
[2025-05-03] MEDS: Pantoprazole 40 MG DR.TAB PO SCH (08:30)
[2025-05-03] MEDS: Carvedilol 6.25 MG TAB PO SCH (08:31)
[2025-05-03] MEDS: Insulin Glargine 30 UNITS/0.3 ML VIAL SC SCH (08:31)
[2025-05-03] MEDS: Allopurinol 300 MG TAB PO SCH (08:31)
[2025-05-03 09:24] LABS: O2 Tension (PaO2), arterial 58.6 mmHg (> 60.0)
[2025-05-03] MEDS ORDERED: Insulin Glargine 30 UNITS/0.3 ML VIAL SC PRN (10:30)
[2025-05-03] MEDS: FLU (Fluad Triv) 25-26 (65UP)PF 45 MCG/0.5 ML Syringe IM ONE (13:20)
[2025-05-03] MEDS: PNEUMOC 20-VAL CONJ-DIP CRM/PF 0.5 ML SYRINGE IM ONE (13:20)
[2025-05-04] MEDS ORDERED: Nitroglycerin 0.4 MG TAB (25 Tab Bottle) SL PRN (07:28)
[2025-05-04] MEDS ORDERED: diphenhydrAMINE 25 MG CAP PO PRN (07:28)
[2025-05-04] MEDS ORDERED: Artificial Tear Ophth Sol 15 ML BOT EA EYE PRN (07:28)
[2025-05-04] MEDS ORDERED: Mineral Oil ENEMA PR PRN (07:28)
[2025-05-04] MEDS: Furosemide 40 MG TAB PO SCH (09:33)
[2025-05-04] MEDS: Carvedilol 6.25 MG TAB PO SCH (17:24)
[2025-05-05] MEDS: Amiodarone 150 MG, Admixture Fee 1 EACH in Dextrose 5% in Water 100 ML IVPB SCH (11:06)
[2025-05-05] MEDS: Insulin Glargine 30 UNITS/0.3 ML VIAL SC SCH (11:31)
[2025-05-05] MEDS: Mupirocin 1 GM TUBE TP SCH (21:40)
[2025-05-05] MEDS: Guaifenesin DM 100-10/5 ML UDCUP PO PRN (21:52)
[2025-05-06 07:04] VITALS: BMI 39.3
[2025-05-06] MEDS: Insulin Glargine 30 UNITS/0.3 ML VIAL SC SCH (08:59)
[2025-05-07 04:36] LABS: #Basophils Less than 0.03 10x3/uL (0.0-0.2); #Eosinophils 0.21 10x3/uL (0.0-0.7); #Monocytes 1.15 10x3/uL (0.11-0.59); #Neutrophils 5.26 10x3/uL (1.40-6.50); %Basophils 0.3 % (0.0-1.0); %Eosinophils 2.7 % (0.0-10.0); %Lymphocytes 14.6 % (21.0-51.0); %Monocytes 14.6 % (0.0-10.0); %Neutrophils 66.5 % (42.0-75.0); Hematocrit 33.2 % (42.0-52.0); Hemoglobin 10.7 g/dL (14.0-18.0); Mean Corpuscular Hemoglobin 27.9 pg (27.0-31.0); Mean Corpuscular Volume 86.7 fL (78.0-98.0); Platelet Count 191 10x3/uL (130-400); Red Blood Cell (RBC) Count 3.83 mill/uL (4.70-6.10); White Blood Cell (WBC) Count 7.89 10x3/uL (4.8-10.8)
[2025-05-07 04:52] LABS: Anion Gap 14 mmol/L (10-20); BUN (Urea Nitrogen) 33 mg/dL (8.4-25.7); Calc. Creatinine Clearance 61 mL/min (70-130); Calcium 9.3 mg/dL (7.8-10.44); Carbon Dioxide 27 mmol/L (23-31); Chloride 104 mmol/L (98-107); Glucose 86 mg/dL (83-110); Potassium 4.2 mmol/L (3.5-5.1); Sodium 141 mmol/L (136-145)
[2025-05-07] MEDS: Milk Of Magnesia 30 ML UDCUP PO PRN (05:57)
[2025-05-08] MEDS: Amiodarone 200 MG TAB PO SCH (08:46)
[2025-05-08 11:50] VITALS: BP 98/60; TEMP 98
== END 2025-05-08 15:03 | disposition home or self-care (01) | DRG 236 ==
LOC: SURG A 05-02 05:51 → CCU 05-02 09:28 → PCU 05-04 14:17
PROVIDERS: ADMIT Thoracic Surgery (Cardiothoracic Vascular Surgery); ATTEND Thoracic Surgery (Cardiothoracic Vascular Surgery)
PROC: 02100Z9 Bypass Coronary Artery, One Artery from Left Internal Mammary, Open Approach (ICD-10-PCS; principal; 2025-05-02)
PROC: 02L70CK Occlusion of Left Atrial Appendage with Extraluminal Device, Open Approach (ICD-10-PCS; 2025-05-02)
PROC: 5A1935Z Respiratory Ventilation, Less than 24 Consecutive Hours (ICD-10-PCS; 2025-05-02)
PROC: 5A09357 Assistance with Respiratory Ventilation, Less than 24 Consecutive Hours, Continuous Positive Airway Pressure (ICD-10-PCS; 2025-05-02)
PROC: 3E03329 Introduction of Other Anti-infective into Peripheral Vein, Percutaneous Approach (ICD-10-PCS; 2025-05-02)
PROC: 3E033XZ Introduction of Vasopressor into Peripheral Vein, Percutaneous Approach (ICD-10-PCS; 2025-05-02)
PROC: 3E0234Z Introduction of Serum, Toxoid and Vaccine into Muscle, Percutaneous Approach (ICD-10-PCS; 2025-05-03)
DX: I25.10 Atherosclerotic heart disease of native coronary artery without angina pectoris (principal); Z98.890 Other specified postprocedural states; E11.9 Type 2 diabetes mellitus without complications; M19.90 Unspecified osteoarthritis, unspecified site; M10.9 Gout, unspecified
CPT/HCPCS: 36415; 36416; 71045; 71046; 80048; 82805; 82947; 85025; 85610; 85730; 86850; 86900; 86901; 93005; 93010; 93798; 94002; A4311; C1751; C1889; J0169; J0282; J0360; J0613; J0665; J0690; J1100; J1642; J1650; J1815; J1885; J2003; J2250; J2270; J2704; J2720; J3010; J3373; J3475; J3480; J7050; J7070; P9045; S0017